=== PATIENT | male | born 1955 | race Caucasian/White ===

== ENCOUNTER → 2016-08-16 | Day surgery (SDC) | payer BC ==
[2016-07-31 08:53] VITALS: BMI 39.0
[~2016-08-16] VITALS: Ht 180.3 cm; Wt 126.4 kg
[~2016-08-16] MED LIST: AMLO10TA2 PO; ASPEC81 PO; ATOR-26 PO; CARV12.52 PO; ESCI1TAB10 PO; LIDOCAINE HCL 2% 2 ML VIAL (20MG/ML) ONE; LISI40TA PO; MIDAZOLAM HCL 1 MG/ML 2ML VIAL ONE; MULT-506 PO; OMEG10007 PO; ONDANSETRON INJ 2 MG/ML 2 ML VIAL ONE; PROPOFOL IV EMULSION 10 MG/ML 20 ML VIAL IV ONE; SODIUM CHLORIDE 0.9% 500ML 500 ML IV ONE
[2016-08-16 13:32] VITALS: Ht 180.3 cm; Wt 126.4 kg
[2016-08-16 13:42] VITALS: TEMP 36.8
--- NOTE | 2016-08-16 14:15 | Endo History and Physical ---
History & Physical Date of Service: Aug 16, 2016. Chief Complaint: 10 YEAR FOLLOW UP Referring Physician: DR BAIRES History of Present Illness colon screening Past Surgical History Hx Cardiac Surgery: No Hx Internal Defibrillator: No Hx Pacemaker: No Hx Abdominal Surgery: No Hx of Implantable Prosthesis: No Hx Post-Op Nausea and Vomiting: No Hx Cancer Surgery: No Hx Thoracic Surgery: No Hx Orthopedic: Yes (LT ARM SURGERY S/P BREAK WITH HARDWARE, RT ARM SKIN GRAFT ( THIGH)S/P TRAUMA) Hx Urinary Tract Surgery: No Family History Polyp, IBD Social History Smoking Status: Former Smoker Hx Substance Use: No Hx Alcohol Use: Yes (30 PACK/WEEK) Allergies Coded Allergies: Sulfa Drugs (Verified Allergy, Unknown, RASH, 08/16/16) Uncoded Allergies: ACIDIC FOODS LARGE AMTS=HIVES (Allergy, Unknown, 07/10/02) Current Medications Reported Home Medications Medications Dose Route/Sig Max Daily Dose Days Date Category [place]-3 (Fish Oil) 1 Ea Cap 1 Cap PO DAILY 07/31/16 Reported Coreg (Carvedilol) 12.5 Mg Tab 12.5 Mg PO DAILY 07/31/16 Reported Zestril (Lisinopril) 40 Mg Tab 40 Mg PO DAILY 07/31/16 Reported Norvasc (Amlodipine Besylate) 10 Mg Tab 10 Mg PO DAILY 07/31/16 Reported Lipitor (Atorvastatin Calcium) 80 Mg Tab 80 Mg PO DAILY 07/31/16 Reported Lexapro (Escitalopram Oxalate) 20 Mg Tab 20 Mg PO BID 07/31/16 Reported Ecotrin Or Generic * (Aspirin) 81 Mg Ectab 81 Mg PO DAILY 01/08/10 Reported Multivitamin (Multivitamins) Tab 1 Tab PO DAILY 01/08/10 Reported Vital Signs Weight (Kilograms): 126.36 Height (Feet): 5 Height (Inches): 11 Date Time Temp Pulse Resp B/P Pulse Ox O2 Delivery O2 Flow Rate FiO2 08/16/16 13:42 36.8 52 20 157/87 95 Room Air Physical Exam AAO x3 Nl s1s2 lungs CTA Abd soft NT/ND + BS - CCE Assessment and Plan colonoscopy
--- NOTE | 2016-08-16 14:52 | Discharge Instructions ---
Endoscopy Patient Instructions Date / Procedure(s) Performed Aug 16, 2016. Colonoscopy Allergy Information Coded Allergies: Sulfa Drugs (Verified Allergy, Unknown, RASH, 08/16/16) Uncoded Allergies: ACIDIC FOODS LARGE AMTS=HIVES (Allergy, Unknown, 07/10/02) Discharge Date / Findings Aug 16, 2016. diverticulosis; colon polyp Medication Instructions Stopped Medication(s): VITAMINS Restart Stopped Medication(s): Reported Home Medications Medications Dose Route/Sig Max Daily Dose Days Date Category [place]-3 (Fish Oil) 1 Ea Cap 1 Cap PO DAILY 07/31/16 Reported Coreg (Carvedilol) 12.5 Mg Tab 12.5 Mg PO DAILY 07/31/16 Reported Zestril (Lisinopril) 40 Mg Tab 40 Mg PO DAILY 07/31/16 Reported Norvasc (Amlodipine Besylate) 10 Mg Tab 10 Mg PO DAILY 07/31/16 Reported Lipitor (Atorvastatin Calcium) 80 Mg Tab 80 Mg PO DAILY 07/31/16 Reported Lexapro (Escitalopram Oxalate) 20 Mg Tab 20 Mg PO BID 07/31/16 Reported Ecotrin Or Generic * (Aspirin) 81 Mg Ectab 81 Mg PO DAILY 01/08/10 Reported Multivitamin (Multivitamins) Tab 1 Tab PO DAILY 01/08/10 Reported Reported Home Medications Medications Dose Route/Sig Max Daily Dose Days Date Category [place]-3 (Fish Oil) 1 Ea Cap 1 Cap PO DAILY 07/31/16 Reported Coreg (Carvedilol) 12.5 Mg Tab 12.5 Mg PO DAILY 07/31/16 Reported Zestril (Lisinopril) 40 Mg Tab 40 Mg PO DAILY 07/31/16 Reported Norvasc (Amlodipine Besylate) 10 Mg Tab 10 Mg PO DAILY 07/31/16 Reported Lipitor (Atorvastatin Calcium) 80 Mg Tab 80 Mg PO DAILY 07/31/16 Reported Lexapro (Escitalopram Oxalate) 20 Mg Tab 20 Mg PO BID 07/31/16 Reported Ecotrin Or Generic * (Aspirin) 81 Mg Ectab 81 Mg PO DAILY 01/08/10 Reported Multivitamin (Multivitamins) Tab 1 Tab PO DAILY 01/08/10 Reported Provider Instructions Activity Restrictions - No exercising or heavy lifting for 24 hours. - Do not drink alcohol the day of the procedure. - Do not drive a car or operate machinery until the day after the procedure. - Do not make any important decisions or sign important papers in 24 hours after the procedure. Following Day: - Return to full activity which may include returning to work/school. Diet Start your diet with liquids and light foods (jello, soup, juice, toast). Then eat your usual diet if not nauseated. Treatment For Common After Affects For mild abdominal pain, bloating, or excessive gas: - Rest - Eat lightly - Lie on right side Follow-Up Information Follow-up with DR BAIRES as scheduled Anesthesia Information What You Should Know You have had a procedure that required some medicine to reduce anxiety and discomfort. This treatment is called moderate sedation. After receiving the treatment, you may be sleepy, but you will be able to breathe on your own. The effects of the treatment may last for several hours. Follow these instructions along with Activity/Diet recommendations noted above: * Do NOT do anything where dizziness or clumsiness would be dangerous. * Rest quietly at home today, then you can be up and about tomorrow. * Have a responsible person stay with you the rest of today. * You may have had an I.V. today. If so, you may take the dressing off later today. Recommendations Call your doctor if: * Trouble breathing * Continuous vomiting for more than 24 hours * Temperature above 101 degrees * Severe abdominal pain or bloating * Pain not relieved by pain medicine ordered * There is increased drainage or redness from any incision * A large amount of rectal bleeding greater than 2-3 tablespoons. (If you had a polyp/s removed or have hemorrhoids, a small amount of blood - from the rectum is to be expected.) * You have any unanswered questions or concerns. IN THE EVENT OF A SERIOUS EMERGENCY, GO TO THE NEAREST EMERGENCY ROOM Your discharge instructions were prepared by provider Nahid Cardenas. Patient Instructions Signature Page Teto Burks Patient (or Guardian) Signature/Date: I have read and understand the instructions given to me by my caregivers. Caregiver/RN/Doctor Signature/Date: The above-named patient and/or guardian has received patient instructions on this date. + Original Patient Signature Page (only) stays with chart. Please make copy for patient.
--- NOTE | 2016-08-16 14:58 | GI REPORT ---
Procedure Date: 08/16/2016 2:12 PM Procedure: Colonoscopy Indications: Screening for colorectal malignant neoplasm, No family history of colon cancer or polyps Medicines: Propofol per Anesthesia Complications: No immediate complications. Estimated blood loss: Minimal. Estimated Blood Loss: Estimated blood loss was minimal. Procedure: Pre-Anesthesia Assessment: - Prior to the procedure, a History and Physical was performed, and patient medications and allergies were reviewed. The patient's tolerance of previous anesthesia was also reviewed. The risks and benefits of the procedure and the sedation options and risks were discussed with the patient. All questions were answered, and informed consent was obtained. Prior Anticoagulants: The patient has taken no previous anticoagulant or antiplatelet agents. ASA Grade Assessment: III - A patient with severe systemic disease. After reviewing the risks and benefits, the patient was deemed in satisfactory condition to undergo the procedure. After I obtained informed consent, the scope was passed under direct vision. Throughout the procedure, the patient's blood pressure, pulse, and oxygen saturations were monitored continuously. The scope was introduced through the anus and advanced to the cecum, identified by appendiceal orifice and ileocecal valve. The colonoscopy was performed without difficulty. The patient tolerated the procedure well. The quality of the bowel preparation was good. Findings: The perianal and digital rectal examinations were normal. Pertinent negatives include normal sphincter tone, no palpable rectal lesions and no anal lesion or abnormality was detected. A 7 mm polyp was found in the descending colon. The polyp was sessile. The polyp was removed with a cold snare. Resection and retrieval were complete. Estimated blood loss was minimal. Verification of patient identification for the specimen was done by the physician and nuclear medicine technician using the patient's name and medical record number. Multiple small-mouthed diverticula were found in the sigmoid colon and in the descending colon. The exam was otherwise without abnormality. The retroflexed view of the distal rectum and anal verge was normal and showed no anal or rectal abnormalities. Impression: - One 7 mm polyp in the descending colon, removed with a cold snare. Resected and retrieved. - Diverticulosis in the sigmoid colon and in the descending colon. - The examination was otherwise normal. - The distal rectum and anal verge are normal on retroflexion view. Recommendation: - Discharge patient to home (ambulatory). - Resume regular diet. - Continue present medications. - Await pathology results. - Repeat colonoscopy for surveillance based on pathology results. - Return to referring physician as previously scheduled. MD Nahid Sargent MD 08/16/2016 2:59:17 PM This report has been signed electronically. Note Initiated On: 08/16/2016 2:12 PM I attest to the content of the Intraoperative Record and orders documented therein, exceptions below
[2016-08-16 15:27] VITALS: BP 114/63; PULSE 51; O2SAT 95
--- NOTE | 2016-08-16 15:28 | Anesthesiology Progress Note ---
Anesthesia Post Op Note Date & Time Aug 16, 2016 at 15:28 Vital Signs Pain Intensity: 0 Vital Signs Past 12 Hours Date Time Temp Pulse Resp B/P Pulse Ox O2 Delivery O2 Flow Rate FiO2 08/16/16 15:09 53 20 114/73 92 Room Air 08/16/16 14:53 59 20 129/73 94 Room Air 08/16/16 13:42 36.8 52 20 157/87 95 Room Air Notes Mental Status: alert / awake / arousable, participated in evaluation Pt Amnestic to Procedure: Yes Nausea / Vomiting: adequately controlled Pain: adequately controlled Airway Patency, RR, SpO2: stable & adequate BP & HR: stable & adequate Hydration State: stable & adequate Anesthetic Complications: no major complications apparent
== END | disposition home or self-care (01) ==
LOC: C.GI 13:16
PROVIDERS: ATTEND Internal Medicine Gastroenterology
DX: Z12.11 Encounter for screening for malignant neoplasm of colon (principal); D12.4 Benign neoplasm of descending colon; K57.30 Diverticulosis of large intestine without perforation or abscess without bleeding; Z98.890 Other specified postprocedural states; Z79.82 Long term (current) use of aspirin; Z83.79 Family history of other diseases of the digestive system; Z87.891 Personal history of nicotine dependence; Z88.2 Allergy status to sulfonamides

== ENCOUNTER → 2017-07-02 | Outpatient (CLI) | payer OTHER ==
[~2017-07-02] MED LIST changes: -LIDOCAINE HCL 2% 2 ML VIAL (20MG/ML) ONE; -MIDAZOLAM HCL 1 MG/ML 2ML VIAL ONE; -ONDANSETRON INJ 2 MG/ML 2 ML VIAL ONE; -PROPOFOL IV EMULSION 10 MG/ML 20 ML VIAL IV ONE; -SODIUM CHLORIDE 0.9% 500ML 500 ML IV ONE
--- NOTE | 2017-07-02 11:56 | DIAGNOSTIC IMAGING REPORT ---
RIGHT SHOULDER 3 VIEWS; RIGHT SCAPULA 2 VIEWS CLINICAL HISTORY: Fall. Right shoulder pain. FINDINGS: 3 views the right shoulder and 2 views of the right scapula are obtained. No prior studies are available for comparison at the time of dictation. The skeletal structures appear osteopenic. There is no radiographic evidence of fracture or dislocation in the right shoulder. There is no radiographic evidence of scapular fracture on the scapular views. Mild productive degenerative change is seen at the acromioclavicular joint. The glenohumeral articulation is preserved. Mild arthritic change is noted in the humeral head. The overlying soft tissues are within normal limits. The visualized right lung parenchyma appears clear. IMPRESSION: 1. Mild degenerative change as above. There is no radiographic evidence of right shoulder fracture or dislocation. 2. There is no radiographic evidence of scapular fracture on the scapula views. Electronically signed by: Ramez Stewart M.D. 07/02/2017 11:55 AM Dictated Date/Time: 07/02/2017 11:53 AM
--- NOTE | 2017-07-02 12:03 | DIAGNOSTIC IMAGING REPORT ---
R HIP UNILATERAL 2 VIEWS HISTORY: 62 years-old Male [id number] acute right hip pain status post fall COMPARISON: CT abdomen and pelvis 01/08/2010 TECHNIQUE: 2 views of the right hip FINDINGS: Mild to moderate right hip degenerative changes. No acute fracture or dislocation. Imaged right hemipelvis appears intact. Probable phleboliths. Soft tissues are unremarkable. IMPRESSION: No acute fracture or dislocation. The above report was generated using voice recognition software. It may contain grammatical, syntax or spelling errors. Electronically signed by: Fly Sales M.D. 07/02/2017 12:01 PM Dictated Date/Time: 07/02/2017 12:00 PM
== END | disposition home or self-care (01) ==
LOC: C.RAD1850 11:32
PROVIDERS: ATTEND Family Medicine
DX: M25.511 Pain in right shoulder (principal); M25.551 Pain in right hip

== ENCOUNTER 2020-12-10 20:23 | Observation (INO) ==
[2020-12-10] MEDS ORDERED: SODIUM CHLORIDE 0.9% 1000ML 2,000 ML IV ONE (21:29)
[2020-12-10] MEDS ORDERED: ACETAMINOPHEN 325 MG TAB PO STA (21:29)
--- NOTE | 2020-12-10 21:41 | Emergency Department Note ---
Impression & Plan Babesiosis, Thrombocytopenia, Acute hyponatremia, Hypomagnesemia ED Provider Note NAME: GUNJAN ALVAREZ AGE: 65 SEX: M : 1955 ARRIVES VIA: Walk-In INFORMANT: Patient ED PROVIDER(S): Rodrick Oh DO CHIEF COMPLAINT: weak HPI: Patient is a 65-year-old male who presents the ER for weakness. Symptoms started this past Sunday and Sunday with some lightheadedness. On Sunday he started having sweats. He was seen here on Sunday had blood work and was discharged follow-up with PCP. He was found to be thrombocytopenic. PCP saw him and will follow him up next week. He started feeling worse today and consequently came back in. He denies any headache or change in vision. No chest pain or shortness of breath. No belly pain nausea vomiting or diarrhea. He admits to dark urine. Denies any dysuria urgency or frequency. No tick bites. No open wounds or sores. ROS: See above HPI for pertinent positives & negatives. A total of 10 systems reviewed and were otherwise negative. PAST MEDICAL HISTORY:See Below PAST SURGICAL HISTORY:See Below FAMILY HISTORY:See Below SOCIAL HISTORY:See Below HOME MEDICATIONS:See Below ALLERGIES:See Below VITALS:See Below PHYSICAL EXAMINATION: GENERAL: Sitting up in bed, alert, well appearing, well nourished, no distress, non-toxic EYE EXAM: normal conjunctiva. PERRL and EOM's grossly intact. OROPHARYNX: no exudate, no erythema, lips, buccal mucosa, and tongue normal and mucous membranes are moist NECK: supple, no nuchal rigidity, no adenopathy, non-tender LUNGS: Clear to auscultation. Normal chest wall mechanics HEART: no murmurs, S1 normal and S2 normal ABDOMEN: abdomen soft, non-tender, normo-active bowel sounds, no masses, no rebound or guarding. UPPER EXTREMITIES: upper extremities are grossly normal. LOWER EXTREMITIES: No pitting edema. NEURO EXAM: Normal sensorium, cranial nerves II-XII grossly intact, normal speech, no gross weakness of arms, no gross weakness of legs. MEDICAL DECISION MAKING: Patient is a 65-year-old male who presents the ER he was seen here 2 days ago had blood work performed as well as Lyme and anaplasmosis all of which was neg ative. Patient presents today as found to be febrile on and otherwise ill- appearing. He has mild leukopenia at 4000. Hemoglobin at 12. Significant thrombocytopenia at 40 down from 190. INR was 1.2. Hyponatremia 130. Magnesium was low at 1.4. Bilirubin at 1.8. UA does show nitrites as well as leuks. This is clearly contaminated with greater than 30 epithelial cells. Do favor the nitrates secondary to the elevated bilirubin. There is no white cells to suggest infection. Patient was given 2 L of IV fluids. He was given doxycycline to cover anaplasmosis and Lyme however smear came back and shows that this is likely babesiosis versus malaria. He has not traveled outside [facility] in the past 2 years. Do favor consistent with babesiosis. Patient was given azithromycin as well as additional antibiotics for coverage. He was updated bedside. Discussed with the hospitalist. Admitted for further work-up. Triage Nursing notes reviewed. Limited review of prior medical records performed Vital Signs: reviewed and remarkable for febrile Differential diagnosis: Differential diagnosis includes etiologies such as sepsis, UTI, pneumonia, metabolic, electrolyte abnormalities, cardiac sources, intracerebral event, toxi cologic, neurological, as well as others were entertained. ER treatment provided: See below Diagnostics interpreted by me: ECG: none Cardiac Monitoring: An order was placed for continuous cardiac monitoring. The monitor shows a rate of 71 with sinus rhythm. Laboratory studies: As stated above and show below. Imaging studies: Portable AP upright 1 view of the chest shows no focal infiltrate or pneumothorax Consultation(s): Discussed with the hospitalist for further evaluation Procedures: none Past Med/Surg History Medical History Depression History of ankle fracture ORIF 05/06/2020 FIBULA PLUS SYNDESMOSIS. COMPLICATED BY WOUND INFECTION History of cardiac murmur A CHILD- NO MURMUR NOTED AT LAST PCP VISIT IN JUN 2019 Hx of migraines Hyperlipidemia Hypertension Pre-diabetes Sleep apnea CPAP Surgical History History of anesthesia reaction SLOW TO WAKE UP History of colonoscopy History of open reduction and internal fixation (ORIF) procedure LEFT ARM Hx of skin graft ELBOW [place] teeth removed Family History Father Diabetes Sister Diabetes Brother Diabetes Other No family history of adverse response to anesthesia Stroke Social History Smoking Status: Never smoker Second Hand Exposure: Yes ( A CHILD); Hx Alcohol Use: Yes Alcohol type: beer Preferred Language: Macedonian Visual Impairment: No 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 Required: No Beliefs That Will Affect Care: None marital status: Current Living Situation: Spouse current occupational status: retired Feels Safe at Home: Yes Assistive Devices: CPAP, Glasses and Walker Allergies Allergies Allergy/AdvReac Type Severity Reaction Status Date / Time Sulfa (Sulfonamide Allergy Mild RASH Verified 11/10/20 09:27 Antibiotics) ACIDIC FOODS LARGE AMTS=HIVES Allergy Intermediate Hives Uncoded 11/10/20 09:27 Home Meds Home Medications Medication Instructions Recorded Confirmed Vascepa 4 cap PO BID 05/02/20 12/11/20 amlodipine 10 mg tablet 10 mg PO QAM 05/02/20 12/11/20 ascorbic acid (vitamin C) 500 mg 500 mg PO QAM 05/02/20 12/11/20 tablet (Vitamin C) aspirin 81 mg tablet,delayed 81 mg PO QPM 05/02/20 12/11/20 release atorvastatin 80 mg tablet 80 mg PO HS 05/02/20 12/11/20 cholecalciferol (vitamin D3) 25 25 mcg PO QAM 05/02/20 12/11/20 mcg (1,000 unit) capsule (Vitamin D3) coQ10 (ubiquinol) 200 mg capsule 200 mg PO QPM 05/02/20 12/11/20 escitalopram oxalate 20 mg tablet 20 mg PO QAM 05/02/20 12/11/20 (Lexapro) lisinopril 40 mg tablet 40 mg PO QPM 05/02/20 12/11/20 metformin 500 mg tablet 500 mg PO QAM 05/02/20 12/11/20 metoprolol succinate 100 mg 100 mg PO QAM 05/02/20 12/11/20 tablet,extended release 24 hr multivitamin 1 tab PO QPM 05/02/20 12/11/20 Previous Rx's Medication Instructions Recorded Wheelchair (Manual) #1 ea 05/06/20 Results & Data (ED) Vital Signs Vital Signs - 24 hr 12/10/20 20:38 12/10/20 21:30 12/10/20 22:00 Temperature 37.9 C H Temperature Source Temporal Artery Scan Pulse Rate 81 Pulse Rate [Apical] 72 74 Pulse Rhythm Regular Pulse Strength Normal Respiratory Rate 20 18 20 Respiratory Effort / Characteristics Non-Labored Spontaneous Respiratory Depth Normal Respiratory Pattern Regular Blood Pressure 111/61 Blood Pressure [Right Arm] 135/67 130/68 Blood Pressure Mean 77 Blood Pressure Mean [Right Arm] 89 88 Blood Pressure Position Sitting Pulse Oximetry 92 94 95 Oxygen Delivery Method Room Air Room Air Room Air Sepsis Recent Fever Within 48 Hours No Sepsis New/Unexplained Change in Mental Status No Sepsis Action Taken by Nursing No Action Required 12/10/20 22:28 12/10/20 22:30 12/10/20 23:00 Temperature Temperature Source Pulse Rate Pulse Rate [Apical] 70 70 Pulse Rhythm Pulse Strength Respiratory Rate 16 18 Respiratory Effort / Characteristics Non-Labored Spontaneous Respiratory Depth Respiratory Pattern Blood Pressure Blood Pressure [Right Arm] 149/79 H 139/79 Blood Pressure Mean Blood Pressure Mean [Right Arm] 102 99 Blood Pressure Position Pulse Oximetry 94 95 Oxygen Delivery Method Room Air Room Air Sepsis Recent Fever Within 48 Hours Sepsis New/Unexplained Change in Mental Status Sepsis Action Taken by Nursing 12/10/20 23:30 12/11/20 00:00 12/11/20 00:30 Temperature Temperature Source Pulse Rate 71 70 73 Pulse Rate [Apical] Pulse Rhythm Pulse Strength Respiratory Rate 17 18 20 Respiratory Effort / Characteristics Respiratory Depth Respiratory Pattern Blood Pressure 120/65 110/72 130/71 Blood Pressure [Right Arm] Blood Pressure Mean 83 84 90 Blood Pressure Mean [Right Arm] Blood Pressure Position Pulse Oximetry Oxygen Delivery Method Sepsis Recent Fever Within 48 Hours Sepsis New/Unexplained Change in Mental Status Sepsis Action Taken by Nursing 12/11/20 00:48 12/11/20 01:08 Temperature 37.3 C Temperature Source Oral Pulse Rate Pulse Rate [Apical] Pulse Rhythm Pulse Strength Respiratory Rate Respiratory Effort / Characteristics Non-Labored Spontaneous Respiratory Depth Respiratory Pattern Blood Pressure Blood Pressure [Right Arm] Blood Pressure Mean Blood Pressure Mean [Right Arm] Blood Pressure Position Pulse Oximetry 98 Oxygen Delivery Method Room Air Sepsis Recent Fever Within 48 Hours Sepsis New/Unexplained Change in Mental Status Sepsis Action Taken by Nursing Laboratory Data Result diagrams: 12/10/20 21:45 12/10/20 21:45 Lab Results 12/10/20 12/10/20 12/10/20 Range/Units 21:45 21:45 21:45 WBC 4.88 (4.8-10.8) K/uL RBC 4.00 L (4.7-6.1) M/uL Hgb 12.1 L (14.0-18.0) g/dL Hct 35.6 L (42-52) % MCV 89.0 (80-100) fL MCH 30.3 (25-34) pg MCHC 34.0 (32-36) g/dL RDW Std Deviation 49.7 H (36.4-46.3) fL RDW Coeff of Deon 15.3 H (11.5-14.5) % Plt Count 40 L (130-400) K/uL MPV 11.8 H (7.4-10.4) fL Neutrophils % (Manual) 51.7 % Lymphocytes % (Manual) 23.7 % Reactive Lymphs % (Man) 11.4 % Monocytes % (Manual) 11.4 % Eosinophils % (Manual) 0.9 % Metamyelocytes % (Man) 0.9 % Neutrophils # (Manual) 2.52 (1.4-6.5) K/uL Total Absolute Neuts 2.52 (1.4-6.5) K/uL Lymphocytes # (Manual) 1.16 L (1.2-3.4) K/uL Reactive Lymphs # 0.56 K/uL Total Abs Lymphocytes 1.71 (1.2-3.4) K/uL Monocytes # (Manual) 0.56 (0.11-0.59) K/uL Eosinophils # (Manual) 0.04 (0-0.5) K/uL Metamyelocytes # (Man) 0.04 H (0-0) K/uL Platelet Estimate Decreased L (Normal) Polychromasia 1+ PT (9.0-12.0) Seconds INR (0.9-1.1) APTT (21.0-31.0) Seconds PTT Ratio Sodium 130 L (136-145) mmol/L Potassium 3.8 (3.5-5.1) mmol/L Chloride 98 (98-107) mmol/L Carbon Dioxide 27 (21-32) mmol/L Anion Gap 5.0 (3-11) BUN 16 (7-18) mg/dl Creatinine 0.77 D (0.6-1.4) mg/dl Est Cr Clr Drug Dosing 118.0 ml/min Est GFR ( Amer) 110.4 ml/min Est GFR (Non-Af Amer) 95.2 ml/min BUN/Creatinine Ratio 20.6 H (10-20) Glucose 176 H (70-99) mg/dl Lactate (0.4-2.0) mmol/L Calcium 8.7 (8.5-10.1) mg/dl Magnesium 1.4 L (1.8-2.4) mg/dl Total Bilirubin 1.8 H (0.2-1) mg/dl AST 63 H (15-37) U/L ALT 56 (12-78) U/L Alkaline Phosphatase 53 (45-117) U/L Total Protein 7.7 (6.4-8.2) gm/dl Albumin 2.9 L (3.4-5.0) gm/dl Globulin 4.8 H (2.5-4.0) gm/dl Albumin/Globulin Ratio 0.6 L (0.9-2) Urine Color Urine Appearance (Clear) Urine pH (4.5-7.5) Ur Specific [place] (1.000-1.030) Urine Protein (Negative) Urine Glucose (UA) (Negative) Urine Ketones (Negative) Urine Blood (Negative) Urine Nitrite (Negative) Urine Bilirubin (Negative) Urine Urobilinogen (Negative) Ur Leukocyte Esterase (Negative) Urine WBC (Auto) (0-5) /hpf Urine RBC (Auto) (0-4) /hpf U Hyaline Cast (Auto) (0-5) /lpf U Epithel Cells (Auto) (0-5) /lpf Urine Bacteria (Auto) (Negative) Ur Renal Epithelial Cell Granular Casts (0) /lpf Anaplasma Smear See Comment Lyme Disease IgG Ab (Negative) Lyme Disease IgM Ab (Negative) COVID-19 Eval Order SARS-CoV-2 (PCR) (Negative) 12/10/20 12/10/20 12/10/20 Range/Units 21:45 21:45 21:45 WBC (4.8-10.8) K/uL RBC (4.7-6.1) M/uL Hgb (14.0-18.0) g/dL Hct (42-52) % MCV (80-100) fL MCH (25-34) pg MCHC (32-36) g/dL RDW Std Deviation (36.4-46.3) fL RDW Coeff of Deon (11.5-14.5) % Plt Count (130-400) K/uL MPV (7.4-10.4) fL Neutrophils % (Manual) % Lymphocytes % (Manual) % Reactive Lymphs % (Man) % Monocytes % (Manual) % Eosinophils % (Manual) % Metamyelocytes % (Man) % Neutrophils # (Manual) (1.4-6.5) K/uL Total Absolute Neuts (1.4-6.5) K/uL Lymphocytes # (Manual) (1.2-3.4) K/uL Reactive Lymphs # K/uL Total Abs Lymphocytes (1.2-3.4) K/uL Monocytes # (Manual) (0.11-0.59) K/uL Eosinophils # (Manual) (0-0.5) K/uL Metamyelocytes # (Man) (0-0) K/uL Platelet Estimate (Normal) Polychromasia PT 12.4 H (9.0-12.0) Seconds INR 1.2 H (0.9-1.1) APTT 29.3 (21.0-31.0) Seconds PTT Ratio 1.1 Sodium (136-145) mmol/L Potassium (3.5-5.1) mmol/L Chloride (98-107) mmol/L Carbon Dioxide (21-32) mmol/L Anion Gap (3-11) BUN (7-18) mg/dl Creatinine (0.6-1.4) mg/dl Est Cr Clr Drug Dosing ml/min Est GFR ( Amer) ml/min Est GFR (Non-Af Amer) ml/min BUN/Creatinine Ratio (10-20) Glucose (70-99) mg/dl Lactate 1.6 (0.4-2.0) mmol/L Calcium (8.5-10.1) mg/dl Magnesium (1.8-2.4) mg/dl Total Bilirubin (0.2-1) mg/dl AST (15-37) U/L ALT (12-78) U/L Alkaline Phosphatase (45-117) U/L Total Protein (6.4-8.2) gm/dl Albumin (3.4-5.0) gm/dl Globulin (2.5-4.0) gm/dl Albumin/Globulin Ratio (0.9-2) Urine Color Urine Appearance (Clear) Urine pH (4.5-7.5) Ur Specific [place] (1.000-1.030) Urine Protein (Negative) Urine Glucose (UA) (Negative) Urine Ketones (Negative) Urine Blood (Negative) Urine Nitrite (Negative) Urine Bilirubin (Negative) Urine Urobilinogen (Negative) Ur Leukocyte Esterase (Negative) Urine WBC (Auto) (0-5) /hpf Urine RBC (Auto) (0-4) /hpf U Hyaline Cast (Auto) (0-5) /lpf U Epithel Cells (Auto) (0-5) /lpf Urine Bacteria (Auto) (Negative) Ur Renal Epithelial Cell Granular Casts (0) /lpf Anaplasma Smear Lyme Disease IgG Ab Negative (Negative) Lyme Disease IgM Ab Negative (Negative) COVID-19 Eval Order SARS-CoV-2 (PCR) (Negative) 12/10/20 12/11/20 12/11/20 Range/Units 21:56 00:00 00:00 WBC (4.8-10.8) K/uL RBC (4.7-6.1) M/uL Hgb (14.0-18.0) g/dL Hct (42-52) % MCV (80-100) fL MCH (25-34) pg MCHC (32-36) g/dL RDW Std Deviation (36.4-46.3) fL RDW Coeff of Deon (11.5-14.5) % Plt Count (130-400) K/uL MPV (7.4-10.4) fL Neutrophils % (Manual) % Lymphocytes % (Manual) % Reactive Lymphs % (Man) % Monocytes % (Manual) % Eosinophils % (Manual) % Metamyelocytes % (Man) % Neutrophils # (Manual) (1.4-6.5) K/uL Total Absolute Neuts (1.4-6.5) K/uL Lymphocytes # (Manual) (1.2-3.4) K/uL Reactive Lymphs # K/uL Total Abs Lymphocytes (1.2-3.4) K/uL Monocytes # (Manual) (0.11-0.59) K/uL Eosinophils # (Manual) (0-0.5) K/uL Metamyelocytes # (Man) (0-0) K/uL Platelet Estimate (Normal) Polychromasia PT (9.0-12.0) Seconds INR (0.9-1.1) APTT (21.0-31.0) Seconds PTT Ratio Sodium (136-145) mmol/L Potassium (3.5-5.1) mmol/L Chloride (98-107) mmol/L Carbon Dioxide (21-32) mmol/L Anion Gap (3-11) BUN (7-18) mg/dl Creatinine (0.6-1.4) mg/dl Est Cr Clr Drug Dosing ml/min Est GFR ( Amer) ml/min Est GFR (Non-Af Amer) ml/min BUN/Creatinine Ratio (10-20) Glucose (70-99) mg/dl Lactate (0.4-2.0) mmol/L Calcium (8.5-10.1) mg/dl Magnesium (1.8-2.4) mg/dl Total Bilirubin (0.2-1) mg/dl AST (15-37) U/L ALT (12-78) U/L Alkaline Phosphatase (45-117) U/L Total Protein (6.4-8.2) gm/dl Albumin (3.4-5.0) gm/dl Globulin (2.5-4.0) gm/dl Albumin/Globulin Ratio (0.9-2) Urine Color [place] Urine Appearance Clear (Clear) Urine pH 5.5 (4.5-7.5) Ur Specific [place] 1.025 (1.000-1.030) Urine Protein 1+ H (Negative) Urine Glucose (UA) Negative (Negative) Urine Ketones Trace H (Negative) Urine Blood Negative (Negative) Urine Nitrite Positive A (Negative) Urine Bilirubin 1+ H (Negative) Urine Urobilinogen Positive H (Negative) Ur Leukocyte Esterase Trace H (Negative) Urine WBC (Auto) 1-5 (0-5) /hpf Urine RBC (Auto) 5-10 H (0-4) /hpf U Hyaline Cast (Auto) 5-10 H (0-5) /lpf U Epithel Cells (Auto) >30 H (0-5) /lpf Urine Bacteria (Auto) Negative (Negative) Ur Renal Epithelial Cell Not Reportable Granular Casts 5-10 H (0) /lpf Anaplasma Smear Lyme Disease IgG Ab (Negative) Lyme Disease IgM Ab (Negative) COVID-19 Eval Order Covid19 at [facility] SARS-CoV-2 (PCR) NEGATIVE (Negative) Administered Medications Doxycycline Hyclate 100 mg/ (Dextrose) 110 mls @ 50 mls/hr IV NOW STA Stop: 12/11/20 01:30 Last Admin: 12/10/20 23:45 Dose: 50 mls/hr Documented by: [id number] Magnesium Sulfate/Dextrose (Magnesium Sulfate / D5w) 1 gm in 100 mls @ 50 ml s/hr IV Q2H STA Stop: 12/11/20 02:22 Last Admin: 12/11/20 00:44 Dose: 50 mls/hr Documented by: [id number] Discontinued Medications Acetaminophen (Acetaminophen 325 Mg Tab) 650 mg PO NOW STA Stop: 12/10/20 21:30 Last Admin: 12/10/20 22:03 Dose: 650 mg Documented by: [id number] Atovaquone (Atovaquone 750 Mg/5 Ml Udc) 750 mg PO NOW STA Stop: 12/10/20 23:06 Last Admin: 12/10/20 23:45 Dose: 750 mg Documented by: [id number] Sodium Chloride (Nss 1000ml) 2,000 mls @ 999 mls/hr IV .Q2H1M ONE Stop: 12/10/20 23:29 Last Infusion: 12/11/20 01:07 Dose: 0 mls/hr Documented by: [id number] Admin: 12/10/20 22:03 Dose: 999 mls/hr Documented by: [id number] Azithromycin 500 mg/ Dextrose 255 mls @ 127.5 mls/hr IV NOW STA Stop: 12/11/20 01:04 Last Admin: 12/10/20 23:45 Dose: 127.5 mls/hr Documented by: [id number] Imaging Data Radiologist's Impression: Chest X-Ray 12/10/20 21:29 XR chest 1V portable CLINICAL HISTORY: SEPSIS COMPARISON STUDY: Chest CT December 09, 2020. FINDINGS: Lung volumes are normal. Lungs are clear. There is no pneumothorax or pleural effusion. Cardiac size is stable. Mediastinal contours are normal. There is no evidence for pulmonary edema. Mild elevation/eventration of the right hemidiaphragm is unchanged IMPRESSION: No acute cardiopulmonary findings. ACT 112: Negative or not required by law. Electronically signed by: Tj Allen M.D. 12/10/2020 10:51 PM Discharge Plan Visit Data Chief Complaint: Illness Stated Complaint: DIZZINESS, FEELING ILL ED Provider: Rodrick Oh Discharge Problem: Babesiosis, Thrombocytopenia, Acute hyponatremia, Hypomagnesemia Patient Disposition: Admitted As Inpatient Forms Stand Alone Forms: [facility] Prescriptions Prescriptions: No Action (DME) Wheelchair (Manual) Device See Rx Instructions .MEDSUPPLY Qty: 1 RF: 0 multivitamin Tablet 1 tab PO QPM RF: 0 metformin 500 mg Tablet 500 mg PO QAM RF: 0 atorvastatin 80 mg Tablet 80 mg PO HS RF: 0 metoprolol succinate 100 mg Tablet Extended Release 24 Hr 100 mg PO QAM RF: 0 aspirin 81 mg Tablet,Delayed Release (Dr/Ec) 81 mg PO QPM RF: 0 ascorbic acid (vitamin C) [Vitamin C] 500 mg Tablet 500 mg PO QAM RF: 0 amlodipine 10 mg Tablet 10 mg PO QAM RF: 0 lisinopril 40 mg Tablet 40 mg PO QPM RF: 0 cholecalciferol (vitamin D3) [Vitamin D3] 25 mcg (1,000 unit) Capsule 25 mcg PO QAM RF: 0 escitalopram oxalate [Lexapro] 20 mg Tablet 20 mg PO QAM RF: 0 coQ10 (ubiquinol) 200 mg Capsule 200 mg PO QPM RF: 0 Vascepa 4 cap PO BID RF: 0 Referrals Referrals: Kena Contreras MD [Primary Care Provider] -
[2020-12-10 21:55] LABS: Hematocrit (blood only) 35.6 % (42-52); Hemoglobin 12.1 g/dL (14.0-18.0); Mean Corpuscular Hemoglobin 30.3 pg (25-34); RDW Coefficient of Variation 15.3 % (11.5-14.5); RDW Standard Deviation 49.7 fL (36.4-46.3); White Blood Count 4.88 K/uL (4.8-10.8)
[2020-12-10 22:17] LABS: INR 1.2 (0.9-1.1); Partial Thromboplastin Ratio 1.1; Partial Thromboplastin Time 29.3 Seconds (21.0-31.0); Prothrombin Time 12.4 Seconds (9.0-12.0)
[2020-12-10 22:19] LABS: Albumin Globulin Ratio 0.6 (0.9-2); Albumin Level 2.9 gm/dl (3.4-5.0); BUN Creatinine Ratio 20.6 (10-20); Bilirubin,Total 1.8 mg/dl (0.2-1); Calcium 8.7 mg/dl (8.5-10.1); Est GFR (African American) 110.4 ml/min; Est GFR (Non-African American) 95.2 ml/min; Globulin 4.8 gm/dl (2.5-4.0); Magnesium 1.4 mg/dl (1.8-2.4); Potassium 3.8 mmol/L (3.5-5.1); Total Protein 7.7 gm/dl (6.4-8.2)
[2020-12-10 22:48] LABS: Appearance Urine Clear (Clear); Bacteria Urine Automated Negative (Negative); Blood Urine Negative (Negative); Color Urine Orange; Epithelial Cell Urine Auto >30 /lpf (0-5); Glucose Urine UA Negative (Negative); Ketones Urine Trace (Negative); Leukocyte Esterase Urine Trace (Negative); Nitrite Urine Positive (Negative); Protein Urine 1+ (Negative); Specific Gravity Urine 1.025 (1.000-1.030); Urobilinogen Urine Positive (Negative); pH Urine 5.5 (4.5-7.5)
[2020-12-10 22:51] LABS: Bilirubin Urine 1+ (Negative)
--- NOTE | 2020-12-10 22:52 | XRay Report ---
XR chest 1V portable CLINICAL HISTORY: SEPSIS COMPARISON STUDY: Chest CT December 09, 2020. FINDINGS: Lung volumes are normal. Lungs are clear. There is no pneumothorax or pleural effusion. Car diac size is stable. Mediastinal contours are normal. There is no evidence for pulmonary edema. Mild elevation/eventration of the right hemidiaphragm is unchanged IMPRESSION: No acute cardiopulmonary findings. ACT 112: Negative or not required by law. Electronically signed by: Tj Allen M.D. 12/10/2020 10:51 PM
[2020-12-10 22:54] LABS: Lyme Ab IgG w/WB Rflx Negative (Negative)
[2020-12-10 22:55] LABS: Lyme Ab IgM w/WB Rflx Negative (Negative)
[2020-12-10 22:59] LABS: Mean Platelet Volume 11.8 fL (7.4-10.4); Platelet Count 40 K/uL (130-400)
[2020-12-10] MEDS ORDERED: ATOVAQUONE 750 MG/5 ML UDC PO STA (23:05)
[2020-12-10] MEDS ORDERED: AZITHROMYCIN 500 MG in DEXTROSE 5% 250 ML IV STA (23:05)
[2020-12-10 23:07] LABS: ALC (manual) 1.71 K/uL (1.2-3.4); ANC (manual) 2.52 K/uL (1.4-6.5); Eosinophils # (manual) 0.04 K/uL (0-0.5); Eosinophils % (manual) 0.9 %; Lymphocytes # (manual) 1.16 K/uL (1.2-3.4); Lymphocytes % (manual) 23.7 %; Metamyelocytes # (manual) 0.04 K/uL (0-0); Metamyelocytes % (manual) 0.9 %; Monocytes # (manual) 0.56 K/uL (0.11-0.59); Monocytes % (manual) 11.4 %; Neutrophils # (manual) 2.52 K/uL (1.4-6.5); Neutrophils % (manual) 51.7 %; Platelet Estimate Decreased (Normal); Polychromasia 1+; Reactive Lymphocytes # (manual) 0.56 K/uL; Reactive Lymphocytes % (manual) 11.4 %
[2020-12-10] MEDS ORDERED: DOXYCYCLINE HYCLATE 100 MG in DEXTROSE 5% 100 ML IV STA (23:19)
[2020-12-11] MEDS ORDERED: MAGNESIUM SULFATE / D5W 1 GM/100 ML BAG IV STA (00:23)
--- NOTE | 2020-12-11 01:12 | History & Physical Report ---
Date of Service December 11, 2020 Assessment & Plan (1) Babesiosis: Plan: Initial screening peripheral smear for anaplasmosis was thought to possibly represent either malaria or babesiosis. Patient has not had any travel to any malaria type stones, so he is therefore been empirically treated for babesiosis, while the babesiosis smear itself is pending Babesiosis antibody test will also be sent Autovaquone 750 mg p.o. every 12 hours, azithromycin 500 mg IV daily for tr eatment of presumptive babesiosis Doxycycline 100 mg IV every 12 hours added until anaplasmosis antibodies returned negative (2) Thrombocytopenia: Plan: Platelets are 40 upon admission. Follow daily as the above is treated (3) Weakness: Plan: Presumptively secondary to babesiosis type infection (4) Acute hyponatremia: Plan: Sodium 130 upon admission. Placed on NSS + KCl 20 mEq at 100 mils per hour (5) Hypomagnesemia: Plan: Magnesium 1.4 upon admission. Give 3 g of magnesium sulfate IV, and repeat laboratories in a.m. (6) Hyperlipidemia: Plan: Continue atorvastatin 80 mg daily (7) Hypertension: Plan: Hold amlodipine, aspirin, lisinopril. Continue metoprolol succinate 100 mg every morning with hold parameters (8) Sleep apnea: Plan: CPAP at at bedtime as needed (9) Depression: Plan: Continue Lexapro 20 mg daily History of Present Illness Chief Complaint: The patient presents to the emergency department with some persistent generalized weakness that began about 6 days ago, developed sweats 3 days ago, and was seen in the emergency department 2 days ago when he was found to be thrombocytopenic, and advised to follow-up with his PCP. Primary Care Provider: Kena Contreras MD The patient is a 65-year-old male with a past medical history including hypertension, hyperlipidemia, depression, diabetes mellitus and obesity. He presents to the emergency department with symptoms as noted above. [place], but denies any knowledge of tick bites or any other skin disturbances. He denies any recent travels or sick exposures. He did have testing performed in emergency department this evening with the following significant results: Lyme IgM and IgG negative. COVID-19 negative. Anaplasmosis smear negative, but with incidental report of red blood cell inclusion body suggestive of either malaria or babesiosis by pathologist. The patient was started by the ED on Atovaquone orally, doxycycline IV and azithromycin IV. Allergies Allergy/AdvReac Type Severity Reaction Status Date / Time Sulfa (Sulfonamide Allergy Mild RASH Verified 11/10/20 09:27 Antibiotics) ACIDIC FOODS LARGE AMTS=HIVES Allergy Intermediate Hives Uncoded 11/10/20 09:27 Home Medications Medication Instructions Recorded Confirmed Type Vascepa 4 cap PO BID 05/02/20 12/11/20 History amlodipine 10 mg tablet 10 mg PO QAM 05/02/20 12/11/20 History ascorbic acid (vitamin C) 500 mg 500 mg PO QAM 05/02/20 12/11/20 History tablet (Vitamin C) aspirin 81 mg tablet,delayed 81 mg PO QPM 05/02/20 12/11/20 History release atorvastatin 80 mg tablet 80 mg PO HS 05/02/20 12/11/20 History cholecalciferol (vitamin D3) 25 25 mcg PO QAM 05/02/20 12/11/20 History mcg (1,000 unit) capsule (Vitamin D3) coQ10 (ubiquinol) 200 mg capsule 200 mg PO QPM 05/02/20 12/11/20 History escitalopram oxalate 20 mg tablet 20 mg PO QAM 05/02/20 12/11/20 History (Lexapro) lisinopril 40 mg tablet 40 mg PO QPM 05/02/20 12/11/20 History metformin 500 mg tablet 500 mg PO QAM 05/02/20 12/11/20 History metoprolol succinate 100 mg 100 mg PO QAM 05/02/20 12/11/20 History tablet,extended release 24 hr multivitamin 1 tab PO QPM 05/02/20 12/11/20 History Wheelchair (Manual) #1 ea 05/06/20 11/10/20 Rx Past Med/Surg History Medical History (Updated 12/11/20 @ 05:17 by Servando Sam MD) Depression History of ankle fracture ORIF 05/06/2020 FIBULA PLUS SYNDESMOSIS. COMPLICATED BY WOUND INFECTION History of cardiac murmur A CHILD- NO MURMUR NOTED AT LAST PCP VISIT IN JUN 2019 Hx of migraines Hyperlipidemia Hypertension Pre-diabetes Sleep apnea CPAP Surgical History History of anesthesia reaction SLOW TO WAKE UP History of colonoscopy History of open reduction and internal fixation (ORIF) procedure LEFT ARM Hx of skin graft ELBOW [place] teeth removed Family History Father Diabetes Sister Diabetes Brother Diabetes Other No family history of adverse response to anesthesia Stroke Social History Smoking Status: Former smoker Smoking End Date: Quit smoking 42 years ago; Second Hand Exposure: No; Do You Dip or Chew Tobacco: No; Tobacco Cessation Education Requested by Patient: No Hx Alcohol Use: Yes Alcohol type: beer Hx Substance Use: No Preferred Language: Malay Communication Ability: Effective Visual Impairment: No Limitations Veneer Stock Layer Required: No Beliefs That Will Affect Care: None marital status: Current Living Situation: Spouse and Family Current Living Situation Comment: Lives w/ spouse and one son at home current occupational status: retired Other Information That Helps Us Care for You: No Feels Safe at Home: Yes Safety Concerns: Feels Safe At This Time Assistive Devices: None Review of Systems Review of Systems: The patient denies chest pain, palpitations, shortness of breath, dyspnea on exertion, cough, lower extremity swelling, sore throat, nausea, vomiting, diarrhea , constipation, abdominal pain, pelvic pain, blood in urine or stool, dysuria, urinary frequency or urgency, lightheadedness, dizziness, headache, memory loss, loss of consciousness, rash, abnormal bruising or bleeding, imbalance, focal weakness, numbness or tingling in arms or legs, generalized arthralgias or myalgias, back or neck pain, or night sweats. The review of systems is otherwise negative other than for that already noted above, and at least 10 systems have been reviewed. Physical Exam Physical Exam: The patient is awake, alert and oriented 3, well developed and well nourished, normocephalic and atraumatic, lying in bed and in no acute distress. HEENT--PERRL, EOMI, mucous membranes and oropharynx dry. Neck--supple. No JVD. No bruits. Thyroid normal, trachea midline, no adenopathy. Heart--normal S1 and S2. No murmurs, rubs or gallops. Lungs--clear bilaterally, no respiratory distress, no accessory muscle use. Abdomen--normal bowel sounds and soft. Nontender. Nondistended, no hernias or masses, no organomegaly. Extremities--no cyanosis or clubbing. No edema. There are good distal pulses b/l. Dermatologic--normal skin turgor, normal color, no abnormal lymph nodes, no rash. Neurologic--cranial nerves II through XII grossly intact. Rheumatologic--normal range of motion. Psychiatric--normal affect. Results & Data Results & Data ([facility]) Vital Signs (Past 12 Hours) Vital Signs Temp Pulse Pulse Resp BP BP Pulse Ox 12/11/20 01:08 98 12/11/20 00:48 99.1 F 12/11/20 00:30 73 20 130/71 12/11/20 00:00 70 18 110/72 12/10/20 23:30 71 17 120/65 12/10/20 23:00 70 18 139/79 95 12/10/20 22:30 70 16 149/79 H 94 12/10/20 22:00 74 20 130/68 95 12/10/20 21:30 72 18 135/67 94 12/10/20 20:38 100.2 F H 81 20 111/61 92 Laboratory Results Laboratory Results WBC 4.88 K/uL (4.8-10.8) 12/10/20 21:45 RBC 4.00 M/uL (4.7-6.1) L 12/10/20 21:45 Hgb 12.1 g/dL (14.0-18.0) L 12/10/20 21:45 Hct 35.6 % (42-52) L 12/10/20 21:45 MCV 89.0 fL (80-100) 12/10/20 21:45 MCH 30.3 pg (25-34) 12/10/20 21:45 MCHC 34.0 g/dL (32-36) 12/10/20 21:45 RDW Std Deviation 49.7 fL (36.4-46.3) H 12/10/20 21:45 RDW Coeff of Deon 15.3 % (11.5-14.5) H 12/10/20 21:45 Plt Count 40 K/uL (130-400) L 12/10/20 21:45 MPV 11.8 fL (7.4-10.4) H 12/10/20 21:45 Neutrophils % (Manual) 51.7 % 12/10/20 21:45 Lymphocytes % (Manual) 23.7 % 12/10/20 21:45 Reactive Lymphs % (Man) 11.4 % 12/10/20 21:45 Monocytes % (Manual) 11.4 % 12/10/20 21:45 Eosinophils % (Manual) 0.9 % 12/10/20 21:45 Metamyelocytes % (Man) 0.9 % 12/10/20 21:45 Neutrophils # (Manual) 2.52 K/uL (1.4-6.5) 12/10/20 21:45 Total Absolute Neuts 2.52 K/uL (1.4-6.5) 12/10/20 21:45 Lymphocytes # (Manual) 1.16 K/uL (1.2-3.4) L 12/10/20 21:45 Reactive Lymphs # 0.56 K/uL 12/10/20 21:45 Total Abs Lymphocytes 1.71 K/uL (1.2-3.4) 12/10/20 21:45 Monocytes # (Manual) 0.56 K/uL (0.11-0.59) 12/10/20 21:45 Eosinophils # (Manual) 0.04 K/uL (0-0.5) 12/10/20 21:45 Metamyelocytes # (Man) 0.04 K/uL (0-0) H 12/10/20 21:45 Platelet Estimate Decreased (Normal) L 12/10/20 21:45 Polychromasia 1+ 12/10/20 21:45 PT 12.4 Seconds (9.0-12.0) H 12/10/20 21:45 INR 1.2 (0.9-1.1) H 12/10/20 21:45 APTT 29.3 Seconds (21.0-31.0) 12/10/20 21:45 PTT Ratio 1.1 12/10/20 21:45 Sodium 130 mmol/L (136-145) L 12/10/20 21:45 Potassium 3.8 mmol/L (3.5-5.1) 12/10/20 21:45 Chloride 98 mmol/L (98-107) 12/10/20 21:45 Carbon Dioxide 27 mmol/L (21-32) 12/10/20 21:45 Anion Gap 5.0 (3-11) 12/10/20 21:45 BUN 16 mg/dl (7-18) 12/10/20 21:45 Creatinine 0.77 mg/dl (0.6-1.4) D 12/10/20 21:45 Est Cr Clr Drug Dosing 118.0 ml/min 12/10/20 21:45 Est GFR ( Amer) 110.4 ml/min 12/10/20 21:45 Est GFR (Non-Af Amer) 95.2 ml/min 12/10/20 21:45 BUN/Creatinine Ratio 20.6 (10-20) H 12/10/20 21:45 Glucose 176 mg/dl (70-99) H 12/10/20 21:45 Lactate 1.6 mmol/L (0.4-2.0) 12/10/20 21:45 Calcium 8.7 mg/dl (8.5-10.1) 12/10/20 21:45 Magnesium 1.4 mg/dl (1.8-2.4) L 12/10/20 21:45 Total Bilirubin 1.8 mg/dl (0.2-1) H 12/10/20 21:45 AST 63 U/L (15-37) H 12/10/20 21:45 ALT 56 U/L (12-78) 12/10/20 21:45 Alkaline Phosphatase 53 U/L (45-117) 12/10/20 21:45 Total Protein 7.7 gm/dl (6.4-8.2) 12/10/20 21:45 Albumin 2.9 gm/dl (3.4-5.0) L 12/10/20 21:45 Globulin 4.8 gm/dl (2.5-4.0) H 12/10/20 21:45 Albumin/Globulin Ratio 0.6 (0.9-2) L 12/10/20 21:45 Urine Color Wilkinson 12/10/20 21:56 Urine Appearance Clear (Clear) 12/10/20 21:56 Urine pH 5.5 (4.5-7.5) 12/10/20 21:56 Ur Specific Theodore 1.025 (1.000-1.030) 12/10/20 21:56 Urine Protein 1+ (Negative) H 12/10/20 21:56 Urine Glucose (UA) Negative (Negative) 12/10/20 21:56 Urine Ketones Trace (Negative) H 12/10/20 21:56 Urine Blood Negative (Negative) 12/10/20 21:56 Urine Nitrite Positive (Negative) A 12/10/20 21:56 Urine Bilirubin 1+ (Negative) H 12/10/20 21:56 Urine Urobilinogen Positive (Negative) H 12/10/20 21:56 Ur Leukocyte Esterase Trace (Negative) H 12/10/20 21:56 Urine WBC (Auto) 1-5 /hpf (0-5) 12/10/20 21:56 Urine RBC (Auto) 5-10 /hpf (0-4) H 12/10/20 21:56 U Hyaline Cast (Auto) 5-10 /lpf (0-5) H 12/10/20 21:56 U Epithel Cells (Auto) >30 /lpf (0-5) H 12/10/20 21:56 Urine Bacteria (Auto) Negative (Negative) 12/10/20 21:56 Ur Renal Epithelial Cell Not Reportable 12/10/20 21:56 Granular Casts 5-10 /lpf (0) H 12/10/20 21:56 Anaplasma Smear See Comment 12/10/20 21:45 Lyme Disease IgG Ab Negative (Negative) 12/10/20 21:45 Lyme Disease IgM Ab Negative (Negative) 12/10/20 21:45 COVID-19 Eval Order Covid19 at [facility] 12/11/20 00:00 SARS-CoV-2 (PCR) NEGATIVE (Negative) 12/11/20 00:00 Impressions Chest X-Ray 12/10/20 21:29 XR chest 1V portable CLINICAL HISTORY: SEPSIS COMPARISON STUDY: Chest CT December 09, 2020. FINDINGS: Lung volumes are normal. Lungs are clear. There is no pneumothorax or pleural effusion. Cardiac size is stable. Mediastinal contours are normal. There is no evidence for pulmonary edema. Mild elevation/eventration of the right hemidiaphragm is unchanged IMPRESSION: No acute cardiopulmonary findings. ACT 112: Negative or not required by law. Electronically signed by: Tj Allen M.D. 12/10/2020 10:51 PM Code Status & VTE Plan Code Status Full code VTE Prophylaxis Plan VTE Prophylaxis will be ordered: Yes PG Care Time/CCT Total # of Minutes Spent Total Time Spent with Patient: Total time spent is greater than 50% in coordination of care (as documented) at patient's floor/unit and/or counseling patient: Coding Level of Care Code 44278 Initial Inpt Care Lvl 3 Diagnoses Babesiosis B60.00 Thrombocytopenia D69.6 Weakness R53.1 Acute hyponatremia E87.1 Hypomagnesemia E83.42 Hyperlipidemia E78.5 Hypertension I10 Sleep apnea G47.30 Depression F32.9
[2020-12-11] MEDS ORDERED: ONDANSETRON INJ 2 MG/ML 2 ML VIAL IV PRN (02:24)
[2020-12-11] MEDS: NSS + 20MEQ KCL 20 MEQ/1,000 ML BAG IV SCH ×2 (03:19→19:36)
[2020-12-11] MEDS: ACETAMINOPHEN 325 MG TAB PO PRN ×3 (03:19→23:01)
[2020-12-11 07:20] LABS: Hematocrit (blood only) 32.2 % (42-52); Mean Corpuscular Hemoglobin 29.9 pg (25-34); Mean Corpuscular Hgb Conc 34.2 g/dL (32-36); Mean Corpuscular Volume 87.5 fL (80-100); RDW Coefficient of Variation 15.3 % (11.5-14.5); RDW Standard Deviation 49.2 fL (36.4-46.3); Red Blood Count 3.68 M/uL (4.7-6.1); White Blood Count 5.07 K/uL (4.8-10.8)
[2020-12-11 07:21] LABS: Mean Platelet Volume 11.6 fL (7.4-10.4); Platelet Count 30 K/uL (130-400)
[2020-12-11 07:37] LABS: Basophils # (auto) 0.01 K/uL (0-0.2); Basophils % (auto) 0.2 %; Eosinophils # (auto) 0.02 K/uL (0-0.5); Eosinophils % (auto) 0.4 %; Immature Granulocytes # (auto) 0.02 K/uL (0.00-0.02); Immature Granulocytes % (auto) 0.4 %; Lymphocytes # (auto) 2.06 K/uL (1.2-3.4); Lymphocytes % (auto) 40.6 %; Monocytes # (auto) 0.87 K/uL (0.11-0.59); Monocytes % (auto) 17.2 %; Neutrophils # (auto) 2.09 K/uL (1.4-6.5); Neutrophils % (auto) 41.2 %
[2020-12-11 08:00] LABS: Albumin Level 2.7 gm/dl (3.4-5.0); BUN Creatinine Ratio 19.9 (10-20); Calcium 8.1 mg/dl (8.5-10.1); Creatinine Clr Calc Pharmacy 160.3 ml/min; Est GFR (African American) 124.9 ml/min; Est GFR (Non-African American) 107.8 ml/min; Potassium 3.8 mmol/L (3.5-5.1)
[2020-12-11 08:03] LABS: Albumin Globulin Ratio 0.7 (0.9-2); Bilirubin,Total 1.9 mg/dl (0.2-1); Total Protein 6.7 gm/dl (6.4-8.2)
[2020-12-11] MEDS ORDERED: CARBOHYDRATES FOR HYPOGLYCEMIA PO PRN (08:30)
[2020-12-11] MEDS ORDERED: GLUCOSE 10 TABS/TUBE PO PRN (08:30)
[2020-12-11] MEDS ORDERED: DEXTROSE 50% 50 ML SYRINGE IV PRN (08:30)
[2020-12-11] MEDS ORDERED: GLUCAGON FOR INJ 1 MG VIAL SQ PRN (08:30)
[2020-12-11] MEDS ORDERED: GLUCOSE 40% GEL 15 GM TUBE PO PRN (08:30)
[2020-12-11] MEDS: METOPROLOL SUCC 50MG EXT REL TAB PO SCH (08:53)
[2020-12-11] MEDS: CHOLECALCIFEROL 1,000 UNITS 25 MCG TAB PO SCH (08:53)
[2020-12-11] MEDS: ESCITALOPRAM OXALATE 20 MG TAB PO SCH (08:53)
[2020-12-11] MEDS ORDERED: ATOVAQUONE 750 MG/5 ML UDC PO SCH (09:00)
--- NOTE | 2020-12-11 10:38 | Electrocardiogram Report ---
Test Reason : Blood Pressure : / mmHG Vent. Rate : 076 BPM Atrial Rate : 076 BPM P-R Int : 232 ms QRS Dur : 094 ms QT Int : 364 ms P-R-T Axes : 073 -52 050 degrees QTc Int : 409 ms Sinus rhythm with 1st degree A-V block Left anterior fascicular block Abnormal ECG When compared with ECG of 08-DEC-2020 22:01, No significant change was found Confirmed by Van Gutierrez ([id number]) on 12/11/2020 10:38:42 AM Referred By: REFERRED SELF Confirmed By:Van Gutierrez
[2020-12-11] MEDS: INSULIN ASPART 100 UNITS/ML 3 ML PEN SC SCH ×3 (13:36→21:08)
--- NOTE | 2020-12-11 16:52 | Hospitalist Progress Note ---
Date of Service December 11, 2020 Assessment & Plan (1) Babesiosis: Plan: Initial screening peripheral smear for anaplasmosis was thought to possibly represent either malaria or babesiosis. Patient has not had any travel to any malaria-endemic areas, so he is therefore been empirically treated for babesiosis, babesiosis smear shows parasitemia of 1-1.9% Babesiosis antibody test will also be sent-sent titer and PCR DNA test also today Lyme titer negative, anaplasmosis smear negative Patient remains febrile today and is hemolyzing a bit and platelets are down to 30 He does feel improved however and is not having any difficulty with bleeding -Continue Tylenol as needed for fevers -Continue maintenance IV fluids -Continue atovaquone 750 mg p.o. every 12 hours, azithromycin 500 mg IV daily for treatment of presumptive babesiosis -Continue doxycycline 100 mg IV every 12 hours empirically in case of coinfection with anaplasmosis and/or Lyme disease -Consult infectious disease for further recommendations-I sent a [place] connect and if I do not hear back from Dr. 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 -Follow CBC, CMP, LDH, haptoglobin in the morning (2) Thrombocytopenia: Plan: Platelets are 40 upon admission and now down to 30 as above, secondary to babesiosis No evidence of bleeding at this time CT of the abdomen/pelvis on 12/08 does show some mild splenomegaly at that time of 13 cm Follow CBC in the morning If platelets less than 15,000 or has evidence of bleeding with platelets less than 50,000, would transfuse platelets -Discontinue home aspirin (3) Weakness: Plan: Presumptively secondary to babesiosis type infection, improving today with IV fluids and treatment of fever (4) Acute hyponatremia: Plan: Sodium 130 upon admission and now improved to 131 with IV fluid hydration Continue IV fluids (5) Hypomagnesemia: Plan: Magnesium 1.4 upon admission secondary to dehydration and fevers and poor p.o. intake Was given 3 g of magnesium sulfate IV, and repeat magnesium today is improved to 1.8 Follow magnesium level in the morning (6) Hyperlipidemia: Plan: Continue atorvastatin 80 mg daily (7) Hypertension: Plan: Blood pressures are acceptable Hold home amlodipine, aspirin, lisinopril. Continue metoprolol succinate 100 mg every morning with hold parameters (8) Sleep apnea: Plan: Ordered CPAP 9 cm H2O for at bedtime and as needed for naps (9) Depression: Plan: No acute issues Continue Lexapro 20 mg daily (10) Obesity: Plan: BMI 44.0 Needs weight loss counseling (11) Diabetes mellitus type 2 in obese: Plan: Blood sugars are mildly elevated here Start NovoLog sliding scale Holding home Metformin Check hemoglobin A1c in the morning Plan: DVT prophylaxis-none at this time due to thrombocytopenia Disposition-continued stay on medical floor with telemetry Admission and Anticipated Discharge Date Admission Date: December 11, 2020 Subjective Patient had a fever at lunchtime today but after that broke with Tylenol, he is feeling much better. He was sleeping when I came in. He denies any headache or chest pain, no shortness of breath, no abdominal pain or nausea. No diarrhea. No blood in the stool or urine. He is making urine. No bloody noses. Telemetry with sinus rhythm with first-degree AV block with rates in the 70s, occasional [place] 1 Review of Systems Review of Systems: All systems reviewed & are unremarkable except as noted in HPI & below Physical Exam Constitutional: WD/WN, vitals as above + morbidly obese Eyes: PERRL, conjunctivae normal, anicteric sclerae ENMT: external ear and nose normal, oropharynx normal Neck: trachea midline, no thyromegaly Respiratory: normal respiratory effort, lungs clear to auscultation Cardiovascular: RRR, no murmur, no edema Chest (Breasts): Chest: normal inspection of chest Gastrointestinal (Abdomen): normal bowel sounds, soft, nontender, no hepatosplenomegaly Musculoskeletal: Extremities: extremities normal to inspection; no cyanosis and no clubbing Skin: no rashes, warm and dry Neurologic: moves all extremities and awake; no focal motor deficits Psychiatric: A+Ox3, euthymic affect Lymphatic: no lymphedema Results & Data Results & Data ([facility]) Vital Signs (Past 12 Hours) Vital Signs Temp Pulse Pulse Resp BP Pulse Ox 12/11/20 16:33 70 12/11/20 15:45 36.6 C 60 20 117/72 91 12/11/20 12:16 38.8 C H 79 20 122/63 90 12/11/20 08:16 36.5 C 85 20 110/64 90 12/11/20 07:35 73 12/11/20 06:33 37.2 C Laboratory Results 12/11/20 12/11/20 12/11/20 Range/Units 11:43 10:03 06:59 WBC (4.8-10.8) K/uL RBC (4.7-6.1) M/uL Hgb (14.0-18.0) g/dL Hct (42-52) % MCV (80-100) fL MCH (25-34) pg MCHC (32-36) g/dL RDW Std Deviation (36.4-46.3) fL RDW Coeff of Deon (11.5-14.5) % Plt Count (130-400) K/uL MPV (7.4-10.4) fL Immature Gran % (Auto) % Neut % (Auto) % Lymph % (Auto) % [place] % (Auto) % Eos % (Auto) % Baso % (Auto) % Neut # (Auto) (1.4-6.5) K/uL Lymph # (Auto) (1.2-3.4) K/uL [place] # (Auto) (0.11-0.59) K/uL Eos # (Auto) (0-0.5) K/uL Baso # (Auto) (0-0.2) K/uL Immature Gran # (Auto) (0.00-0.02) K/uL Neutrophils % (Manual) % Lymphocytes % (Manual) % Reactive Lymphs % (Man) % Monocytes % (Manual) % Eosinophils % (Manual) % Metamyelocytes % (Man) % Neutrophils # (Manual) (1.4-6.5) K/uL Total Absolute Neuts (1.4-6.5) K/uL Lymphocytes # (Manual) (1.2-3.4) K/uL Reactive Lymphs # K/uL Total Abs Lymphocytes (1.2-3.4) K/uL Monocytes # (Manual) (0.11-0.59) K/uL Eosinophils # (Manual) (0-0.5) K/uL Metamyelocytes # (Man) (0-0) K/uL Platelet Estimate (Normal) Polychromasia PT (9.0-12.0) Seconds INR (0.9-1.1) APTT (21.0-31.0) Seconds PTT Ratio Sodium (136-145) mmol/L Potassium (3.5-5.1) mmol/L Chloride (98-107) mmol/L Carbon Dioxide (21-32) mmol/L Anion Gap (3-11) BUN (7-18) mg/dl Creatinine (0.6-1.4) mg/dl Est Cr Clr Drug Dosing ml/min Est GFR ( Amer) ml/min Est GFR (Non-Af Amer) ml/min BUN/Creatinine Ratio (10-20) Glucose (70-99) mg/dl POC Glucose 176 H (70-99) mg/dl Lactate (0.4-2.0) mmol/L Calcium (8.5-10.1) mg/dl Magnesium 1.8 (1.8-2.4) mg/dl Total Bilirubin (0.2-1) mg/dl AST (15-37) U/L ALT (12-78) U/L Alkaline Phosphatase (45-117) U/L Total Protein (6.4-8.2) gm/dl Albumin (3.4-5.0) gm/dl Globulin (2.5-4.0) gm/dl Albumin/Globulin Ratio (0.9-2) Urine Color Urine Appearance (Clear) Urine pH (4.5-7.5) Ur Specific [place] (1.000-1.030) Urine Protein (Negative) Urine Glucose (UA) (Negative) Urine Ketones (Negative) Urine Blood (Negative) Urine Nitrite (Negative) Urine Bilirubin (Negative) Urine Urobilinogen (Negative) Ur Leukocyte Esterase (Negative) Urine WBC (Auto) (0-5) /hpf Urine RBC (Auto) (0-4) /hpf U Hyaline Cast (Auto) (0-5) /lpf U Epithel Cells (Auto) (0-5) /lpf Urine Bacteria (Auto) (Negative) Ur Renal Epithelial Cell Granular Casts (0) /lpf Anaplasma Smear A. phagocytophilum DNA Babesia microti IgG Ab Pending Babesia microti IgM Ab Pending Babesia microti DNA PCR Pending Babesia Interpretation Pending Lyme Disease IgG Ab (Negative) Lyme Disease IgM Ab (Negative) COVID-19 Eval Order SARS-CoV-2 (PCR) (Negative) 12/11/20 12/11/20 12/11/20 Range/Units 06:59 06:59 00:00 WBC 5.07 (4.8-10.8) K/uL RBC 3.68 L (4.7-6.1) M/uL Hgb 11.0 L (14.0-18.0) g/dL Hct 32.2 L (42-52) % MCV 87.5 (80-100) fL MCH 29.9 (25-34) pg MCHC 34.2 (32-36) g/dL RDW Std Deviation 49.2 H (36.4-46.3) fL RDW Coeff of Deon 15.3 H (11.5-14.5) % Plt Count 30 L (130-400) K/uL MPV 11.6 H (7.4-10.4) fL Immature Gran % (Auto) 0.4 % Neut % (Auto) 41.2 % Lymph % (Auto) 40.6 % [place] % (Auto) 17.2 % Eos % (Auto) 0.4 % Baso % (Auto) 0.2 % Neut # (Auto) 2.09 (1.4-6.5) K/uL Lymph # (Auto) 2.06 (1.2-3.4) K/uL [place] # (Auto) 0.87 H (0.11-0.59) K/uL Eos # (Auto) 0.02 (0-0.5) K/uL Baso # (Auto) 0.01 (0-0.2) K/uL Immature Gran # (Auto) 0.02 (0.00-0.02) K/uL Neutrophils % (Manual) % Lymphocytes % (Manual) % Reactive Lymphs % (Man) % Monocytes % (Manual) % Eosinophils % (Manual) % Metamyelocytes % (Man) % Neutrophils # (Manual) (1.4-6.5) K/uL Total Absolute Neuts (1.4-6.5) K/uL Lymphocytes # (Manual) (1.2-3.4) K/uL Reactive Lymphs # K/uL Total Abs Lymphocytes (1.2-3.4) K/uL Monocytes # (Manual) (0.11-0.59) K/uL Eosinophils # (Manual) (0-0.5) K/uL Metamyelocytes # (Man) (0-0) K/uL Platelet Estimate (Normal) Polychromasia PT (9.0-12.0) Seconds INR (0.9-1.1) APTT (21.0-31.0) Seconds PTT Ratio Sodium 131 L (136-145) mmol/L Potassium 3.8 (3.5-5.1) mmol/L Chloride 99 (98-107) mmol/L Carbon Dioxide 29 (21-32) mmol/L Anion Gap 3.0 (3-11) BUN 11 (7-18) mg/dl Creatinine 0.57 L (0.6-1.4) mg/dl Est Cr Clr Drug Dosing 160.3 ml/min Est GFR ( Amer) 124.9 ml/min Est GFR (Non-Af Amer) 107.8 ml/min BUN/Creatinine Ratio 19.9 (10-20) Glucose 135 H (70-99) mg/dl POC Glucose (70-99) mg/dl Lactate (0.4-2.0) mmol/L Calcium 8.1 L (8.5-10.1) mg/dl Magnesium (1.8-2.4) mg/dl Total Bilirubin 1.9 H (0.2-1) mg/dl AST 62 H (15-37) U/L ALT 53 (12-78) U/L Alkaline Phosphatase 44 L (45-117) U/L Total Protein 6.7 (6.4-8.2) gm/dl Albumin 2.7 L (3.4-5.0) gm/dl Globulin 4.0 (2.5-4.0) gm/dl Albumin/Globulin Ratio 0.7 L (0.9-2) Urine Color Urine Appearance (Clear) Urine pH (4.5-7.5) Ur Specific [place] (1.000-1.030) Urine Protein (Negative) Urine Glucose (UA) (Negative) Urine Ketones (Negative) Urine Blood (Negative) Urine Nitrite (Negative) Urine Bilirubin (Negative) Urine Urobilinogen (Negative) Ur Leukocyte Esterase (Negative) Urine WBC (Auto) (0-5) /hpf Urine RBC (Auto) (0-4) /hpf U Hyaline Cast (Auto) (0-5) /lpf U Epithel Cells (Auto) (0-5) /lpf Urine Bacteria (Auto) (Negative) Ur Renal Epithelial Cell Granular Casts (0) /lpf Anaplasma Smear A. phagocytophilum DNA Babesia microti IgG Ab Babesia microti IgM Ab Babesia microti DNA PCR Babesia Interpretation Lyme Disease IgG Ab (Negative) Lyme Disease IgM Ab (Negative) COVID-19 Eval Order SARS-CoV-2 (PCR) NEGATIVE (Negative) 12/11/20 12/10/20 12/10/20 Range/Units 00:00 21:56 21:45 WBC (4.8-10.8) K/uL RBC (4.7-6.1) M/uL Hgb (14.0-18.0) g/dL Hct (42-52) % MCV (80-100) fL MCH (25-34) pg MCHC (32-36) g/dL RDW Std Deviation (36.4-46.3) fL RDW Coeff of Deon (11.5-14.5) % Plt Count (130-400) K/uL MPV (7.4-10.4) fL Immature Gran % (Auto) % Neut % (Auto) % Lymph % (Auto) % [place] % (Auto) % Eos % (Auto) % Baso % (Auto) % Neut # (Auto) (1.4-6.5) K/uL Lymph # (Auto) (1.2-3.4) K/uL [place] # (Auto) (0.11-0.59) K/uL Eos # (Auto) (0-0.5) K/uL Baso # (Auto) (0-0.2) K/uL Immature Gran # (Auto) (0.00-0.02) K/uL Neutrophils % (Manual) % Lymphocytes % (Manual) % Reactive Lymphs % (Man) % Monocytes % (Manual) % Eosinophils % (Manual) % Metamyelocytes % (Man) % Neutrophils # (Manual) (1.4-6.5) K/uL Total Absolute Neuts (1.4-6.5) K/uL Lymphocytes # (Manual) (1.2-3.4) K/uL Reactive Lymphs # K/uL Total Abs Lymphocytes (1.2-3.4) K/uL Monocytes # (Manual) (0.11-0.59) K/uL Eosinophils # (Manual) (0-0.5) K/uL Metamyelocytes # (Man) (0-0) K/uL Platelet Estimate (Normal) Polychromasia PT (9.0-12.0) Seconds INR (0.9-1.1) APTT (21.0-31.0) Seconds PTT Ratio Sodium (136-145) mmol/L Potassium (3.5-5.1) mmol/L Chloride (98-107) mmol/L Carbon Dioxide (21-32) mmol/L Anion Gap (3-11) BUN (7-18) mg/dl Creatinine (0.6-1.4) mg/dl Est Cr Clr Drug Dosing ml/min Est GFR ( Amer) ml/min Est GFR (Non-Af Amer) ml/min BUN/Creatinine Ratio (10-20) Glucose (70-99) mg/dl POC Glucose (70-99) mg/dl Lactate 1.6 (0.4-2.0) mmol/L Calcium (8.5-10.1) mg/dl Magnesium (1.8-2.4) mg/dl Total Bilirubin (0.2-1) mg/dl AST (15-37) U/L ALT (12-78) U/L Alkaline Phosphatase (45-117) U/L Total Protein (6.4-8.2) gm/dl Albumin (3.4-5.0) gm/dl Globulin (2.5-4.0) gm/dl Albumin/Globulin Ratio (0.9-2) Urine Color [place] Urine Appearance Clear (Clear) Urine pH 5.5 (4.5-7.5) Ur Specific [place] 1.025 (1.000-1.030) Urine Protein 1+ H (Negative) Urine Glucose (UA) Negative (Negative) Urine Ketones Trace H (Negative) Urine Blood Negative (Negative) Urine Nitrite Positive A (Negative) Urine Bilirubin 1+ H (Negative) Urine Urobilinogen Positive H (Negative) Ur Leukocyte Esterase Trace H (Negative) Urine WBC (Auto) 1-5 (0-5) /hpf Urine RBC (Auto) 5-10 H (0-4) /hpf U Hyaline Cast (Auto) 5-10 H (0-5) /lpf U Epithel Cells (Auto) >30 H (0-5) /lpf Urine Bacteria (Auto) Negative (Negative) Ur Renal Epithelial Cell Not Reportable Granular Casts 5-10 H (0) /lpf Anaplasma Smear A. phagocytophilum DNA Babesia microti IgG Ab Babesia microti IgM Ab Babesia microti DNA PCR Babesia Interpretation Lyme Disease IgG Ab (Negative) Lyme Disease IgM Ab (Negative) COVID-19 Eval Order Covid19 at [facility] SARS-CoV-2 (PCR) (Negative) 12/10/20 12/10/20 12/10/20 Range/Units 21:45 21:45 21:45 WBC (4.8-10.8) K/uL RBC (4.7-6.1) M/uL Hgb (14.0-18.0) g/dL Hct (42-52) % MCV (80-100) fL MCH (25-34) pg MCHC (32-36) g/dL RDW Std Deviation (36.4-46.3) fL RDW Coeff of Deon (11.5-14.5) % Plt Count (130-400) K/uL MPV (7.4-10.4) fL Immature Gran % (Auto) % Neut % (Auto) % Lymph % (Auto) % [place] % (Auto) % Eos % (Auto) % Baso % (Auto) % Neut # (Auto) (1.4-6.5) K/uL Lymph # (Auto) (1.2-3.4) K/uL [place] # (Auto) (0.11-0.59) K/uL Eos # (Auto) (0-0.5) K/uL Baso # (Auto) (0-0.2) K/uL Immature Gran # (Auto) (0.00-0.02) K/uL Neutrophils % (Manual) % Lymphocytes % (Manual) % Reactive Lymphs % (Man) % Monocytes % (Manual) % Eosinophils % (Manual) % Metamyelocytes % (Man) % Neutrophils # (Manual) (1.4-6.5) K/uL Total Absolute Neuts (1.4-6.5) K/uL Lymphocytes # (Manual) (1.2-3.4) K/uL Reactive Lymphs # K/uL Total Abs Lymphocytes (1.2-3.4) K/uL Monocytes # (Manual) (0.11-0.59) K/uL Eosinophils # (Manual) (0-0.5) K/uL Metamyelocytes # (Man) (0-0) K/uL Platelet Estimate (Normal) Polychromasia PT 12.4 H (9.0-12.0) Seconds INR 1.2 H (0.9-1.1) APTT 29.3 (21.0-31.0) Seconds PTT Ratio 1.1 Sodium (136-145) mmol/L Potassium (3.5-5.1) mmol/L Chloride (98-107) mmol/L Carbon Dioxide (21-32) mmol/L Anion Gap (3-11) BUN (7-18) mg/dl Creatinine (0.6-1.4) mg/dl Est Cr Clr Drug Dosing ml/min Est GFR ( Amer) ml/min Est GFR (Non-Af Amer) ml/min BUN/Creatinine Ratio (10-20) Glucose (70-99) mg/dl POC Glucose (70-99) mg/dl Lactate (0.4-2.0) mmol/L Calcium (8.5-10.1) mg/dl Magnesium (1.8-2.4) mg/dl Total Bilirubin (0.2-1) mg/dl AST (15-37) U/L ALT (12-78) U/L Alkaline Phosphatase (45-117) U/L Total Protein (6.4-8.2) gm/dl Albumin (3.4-5.0) gm/dl Globulin (2.5-4.0) gm/dl Albumin/Globulin Ratio (0.9-2) Urine Color Urine Appearance (Clear) Urine pH (4.5-7.5) Ur Specific [place] (1.000-1.030) Urine Protein (Negative) Urine Glucose (UA) (Negative) Urine Ketones (Negative) Urine Blood (Negative) Urine Nitrite (Negative) Urine Bilirubin (Negative) Urine Urobilinogen (Negative) Ur Leukocyte Esterase (Negative) Urine WBC (Auto) (0-5) /hpf Urine RBC (Auto) (0-4) /hpf U Hyaline Cast (Auto) (0-5) /lpf U Epithel Cells (Auto) (0-5) /lpf Urine Bacteria (Auto) (Negative) Ur Renal Epithelial Cell Granular Casts (0) /lpf Anaplasma Smear A. phagocytophilum DNA Pending Babesia microti IgG Ab Babesia microti IgM Ab Babesia microti DNA PCR Babesia Interpretation Lyme Disease IgG Ab Negative (Negative) Lyme Disease IgM Ab Negative (Negative) COVID-19 Eval Order SARS-CoV-2 (PCR) (Negative) 12/10/20 12/10/20 12/10/20 Range/Units 21:45 21:45 21:45 WBC 4.88 (4.8-10.8) K/uL RBC 4.00 L (4.7-6.1) M/uL Hgb 12.1 L (14.0-18.0) g/dL Hct 35.6 L (42-52) % MCV 89.0 (80-100) fL MCH 30.3 (25-34) pg MCHC 34.0 (32-36) g/dL RDW Std Deviation 49.7 H (36.4-46.3) fL RDW Coeff of Deon 15.3 H (11.5-14.5) % Plt Count 40 L (130-400) K/uL MPV 11.8 H (7.4-10.4) fL Immature Gran % (Auto) % Neut % (Auto) % Lymph % (Auto) % [place] % (Auto) % Eos % (Auto) % Baso % (Auto) % Neut # (Auto) (1.4-6.5) K/uL Lymph # (Auto) (1.2-3.4) K/uL [place] # (Auto) (0.11-0.59) K/uL Eos # (Auto) (0-0.5) K/uL Baso # (Auto) (0-0.2) K/uL Immature Gran # (Auto) (0.00-0.02) K/uL Neutrophils % (Manual) 51.7 % Lymphocytes % (Manual) 23.7 % Reactive Lymphs % (Man) 11.4 % Monocytes % (Manual) 11.4 % Eosinophils % (Manual) 0.9 % Metamyelocytes % (Man) 0.9 % Neutrophils # (Manual) 2.52 (1.4-6.5) K/uL Total Absolute Neuts 2.52 (1.4-6.5) K/uL Lymphocytes # (Manual) 1.16 L (1.2-3.4) K/uL Reactive Lymphs # 0.56 K/uL Total Abs Lymphocytes 1.71 (1.2-3.4) K/uL Monocytes # (Manual) 0.56 (0.11-0.59) K/uL Eosinophils # (Manual) 0.04 (0-0.5) K/uL Metamyelocytes # (Man) 0.04 H (0-0) K/uL Platelet Estimate Decreased L (Normal) Polychromasia 1+ PT (9.0-12.0) Seconds INR (0.9-1.1) APTT (21.0-31.0) Seconds PTT Ratio Sodium 130 L (136-145) mmol/L Potassium 3.8 (3.5-5.1) mmol/L Chloride 98 (98-107) mmol/L Carbon Dioxide 27 (21-32) mmol/L Anion Gap 5.0 (3-11) BUN 16 (7-18) mg/dl Creatinine 0.77 D (0.6-1.4) mg/dl Est Cr Clr Drug Dosing 118.0 ml/min Est GFR ( Amer) 110.4 ml/min Est GFR (Non-Af Amer) 95.2 ml/min BUN/Creatinine Ratio 20.6 H (10-20) Glucose 176 H (70-99) mg/dl POC Glucose (70-99) mg/dl Lactate (0.4-2.0) mmol/L Calcium 8.7 (8.5-10.1) mg/dl Magnesium 1.4 L (1.8-2.4) mg/dl Total Bilirubin 1.8 H (0.2-1) mg/dl AST 63 H (15-37) U/L ALT 56 (12-78) U/L Alkaline Phosphatase 53 (45-117) U/L Total Protein 7.7 (6.4-8.2) gm/dl Albumin 2.9 L (3.4-5.0) gm/dl Globulin 4.8 H (2.5-4.0) gm/dl Albumin/Globulin Ratio 0.6 L (0.9-2) Urine Color Urine Appearance (Clear) Urine pH (4.5-7.5) Ur Specific [place] (1.000-1.030) Urine Protein (Negative) Urine Glucose (UA) (Negative) Urine Ketones (Negative) Urine Blood (Negative) Urine Nitrite (Negative) Urine Bilirubin (Negative) Urine Urobilinogen (Negative) Ur Leukocyte Esterase (Negative) Urine WBC (Auto) (0-5) /hpf Urine RBC (Auto) (0-4) /hpf U Hyaline Cast (Auto) (0-5) /lpf U Epithel Cells (Auto) (0-5) /lpf Urine Bacteria (Auto) (Negative) Ur Renal Epithelial Cell Granular Casts (0) /lpf Anaplasma Smear See Comment A. phagocytophilum DNA Babesia microti IgG Ab Babesia microti IgM Ab Babesia microti DNA PCR Babesia Interpretation Lyme Disease IgG Ab (Negative) Lyme Disease IgM Ab (Negative) COVID-19 Eval Order SARS-CoV-2 (PCR) (Negative) PG Care Time/CCT Total # of Minutes Spent Total Time Spent with Patient: Total time spent is greater than 50% in coordination of care (as documented) at patient's floor/unit and/or counseling patient: Coding Level of Care Code None Diagnoses Babesiosis B60.00 Thrombocytopenia D69.6 Weakness R53.1 Acute hyponatremia E87.1 Hypomagnesemia E83.42 Hyperlipidemia E78.5 Hypertension I10 Sleep apnea G47.30 Depression F32.9 Obesity E66.9 Diabetes mellitus type 2 in obese E11.69; E66.9
[2020-12-11] MEDS: AZITHROMYCIN 500 MG in DEXTROSE 5% 250 ML IV SCH (18:01)
[2020-12-11] MEDS ORDERED: NON-FORMULARY MEDICATION (Coq10 (Ubiquinol) 200 mg Capsule) PO SCH (21:00)
[2020-12-11] MEDS ORDERED: ASPIRIN 81 MG ECTAB PO SCH (21:00)
[2020-12-11] MEDS: ATORVASTATIN 40 MG TAB PO SCH (21:05)
[2020-12-11] MEDS: ATOVAQUONE 750 MG/5 ML UDC PO SCH (21:05)
[2020-12-12 06:05] LABS: Hematocrit (blood only) 33.6 % (42-52); Hemoglobin 11.3 g/dL (14.0-18.0); Mean Corpuscular Hemoglobin 30.2 pg (25-34); Mean Corpuscular Hgb Conc 33.6 g/dL (32-36); Mean Corpuscular Volume 89.8 fL (80-100); Mean Platelet Volume 12.2 fL (7.4-10.4); Platelet Count 34 K/uL (130-400); RDW Coefficient of Variation 15.6 % (11.5-14.5); RDW Standard Deviation 51.3 fL (36.4-46.3); Red Blood Count 3.74 M/uL (4.7-6.1); White Blood Count 3.92 K/uL (4.8-10.8)
[2020-12-12 06:36] LABS: Basophils # (auto) 0.02 K/uL (0-0.2); Basophils % (auto) 0.5 %; Eosinophils # (auto) 0.03 K/uL (0-0.5); Eosinophils % (auto) 0.8 %; Immature Granulocytes # (auto) 0.02 K/uL (0.00-0.02); Immature Granulocytes % (auto) 0.5 %; Lymphocytes # (auto) 1.78 K/uL (1.2-3.4); Lymphocytes % (auto) 45.4 %; Monocytes # (auto) 0.68 K/uL (0.11-0.59); Monocytes % (auto) 17.3 %; Neutrophils # (auto) 1.39 K/uL (1.4-6.5); Neutrophils % (auto) 35.5 %; Polychromasia 1+
[2020-12-12 06:47] LABS: Albumin Level 2.6 gm/dl (3.4-5.0); BUN Creatinine Ratio 21.6 (10-20); Calcium 8.1 mg/dl (8.5-10.1); Creatinine Clr Calc Pharmacy 177.7 ml/min; Est GFR (African American) 130.7 ml/min; Est GFR (Non-African American) 112.8 ml/min; Magnesium 1.8 mg/dl (1.8-2.4); Potassium 4.1 mmol/L (3.5-5.1)
[2020-12-12 06:49] LABS: Albumin Globulin Ratio 0.6 (0.9-2); Bilirubin,Total 1.5 mg/dl (0.2-1); Globulin 4.2 gm/dl (2.5-4.0); Total Protein 6.8 gm/dl (6.4-8.2)
[2020-12-12] MEDS: ATOVAQUONE 750 MG/5 ML UDC PO SCH ×2 (10:11→21:27)
[2020-12-12] MEDS: ESCITALOPRAM OXALATE 20 MG TAB PO SCH (10:12)
[2020-12-12] MEDS: METOPROLOL SUCC 50MG EXT REL TAB PO SCH (10:12)
[2020-12-12] MEDS: CHOLECALCIFEROL 1,000 UNITS 25 MCG TAB PO SCH (10:12)
[2020-12-12] MEDS: INSULIN ASPART 100 UNITS/ML 3 ML PEN SC SCH ×4 (10:48→21:26)
[2020-12-12] MEDS: NSS + 20MEQ KCL 20 MEQ/1,000 ML BAG IV SCH (12:31)
--- NOTE | 2020-12-12 17:11 | Hospitalist Progress Note ---
Date of Service December 12, 2020 Assessment & Plan (1) Babesiosis: Plan: Initial screening peripheral smear for anaplasmosis was thought to possibly represent either malaria or babesiosis. Patient has not had any travel to any malaria-endemic areas, so he is therefore been empirically treated for babesiosis, babesiosis smear shows parasitemia of 1-1.9% initially and now is decreasing down to 0.1-0.9% on 12/12 Babesiosis antibody titer and PCR DNA sent and are pending Lyme titer negative, anaplasmosis smear negative, Anaplasma DNA PCR pending Patient remains febrile in the last 24 hours and is hemolyzing a bit and platelets are down to 30 at the adrien, but total bilirubin decreasing and platelets rising today to 34, hemoglobin stable at 11.4 Not having any bleeding issues I discussed his care with infectious disease, Dr. Cool, on the phone on 12/11- he recommended continued treatment with atovaquone and azithromycin as we are doing and expects that he will improve fairly quickly. He also noted that at times the parasitemia level may not decrease as much as would be expected because there can be parasites inside red blood cells that have not yet been taken up by the spleen. However, his parasitemia level is decreasing today -Await official ID consult on Sunday via iPad -Continue Tylenol as needed for fevers -Can now discontinue maintenance IV fluids -Continue atovaquone 750 mg p.o. every 12 hours x10-day course-prescription already sent to his outpatient pharmacy as they needed time to order it in -Continue azithromycin 500 mg daily but change to oral for tomorrow-this will also need to be a 10-day course -Continue doxycycline 100 mg every 12 hours empirically in case of coinfection with anaplasmosis and/or Lyme disease-we will also change this to oral for tomorrow -Follow CBC, CMP, LDH in the morning, haptoglobin is pending (2) Thrombocytopenia: Plan: Platelets were 40 upon admission and then down to 30 , secondary to babesiosis Plts improving today up to 34k No evidence of bleeding at this time CT of the abdomen/pelvis on 12/08 does show some mild splenomegaly at that time of 14 cm Follow CBC in the morning If platelets less than 15,000 or has evidence of bleeding with platelets less than 50,000, would transfuse platelets -Discontinued home aspirin (3) Weakness: Plan: Presumptively secondary to babesiosis type infection, improving today with IV fluids and treatment of fever, Babesiosis dc IVFs (4) Acute hyponatremia: Plan: Sodium 130 upon admission and now improved to 135 with IV fluid hydration will now discontinue IV fluids (5) Hypomagnesemia: Plan: Magnesium 1.4 upon admission secondary to dehydration and fevers and poor p.o. intake Was given 3 g of magnesium sulfate IV, and repeat magnesium today is improved to 1.8 (6) Hyperlipidemia: Plan: Continue atorvastatin 80 mg daily (7) Hypertension: Plan: Blood pressures are now increasing off BP meds restart home amlodipine, lisinopril in the AM Continue metoprolol succinate 100 mg every morning with hold parameters (8) Sleep apnea: Plan: CPAP 9 cm H2O for at bedtime and as needed for naps (9) Depression: Plan: No acute issues Continue Lexapro 20 mg daily (10) Obesity: Plan: BMI 44.0 Needs weight loss counseling (11) Diabetes mellitus type 2 in obese: Plan: Blood sugars are controlled continue NovoLog sliding scale Holding home Metformin Check hemoglobin [id number] (12) Mobitz I: Plan: Having intermittent Mobitz 1 second-degree heart block that is asymptomatic Follow on telemetry Consider lowering dose of metoprolol if continues to spike electrolyte replacement Plan: DVT prophylaxis-none at this time due to thrombocytopenia Disposition-continued stay on medical floor with telemetry, but could possibly discharged home on Sunday if continues to improve. His atovaquone is already been called into his pharmacy in advance as they reported it would take at least 24 hours to order in. Admission and Anticipated Discharge Date Admission Date: December 11, 2020 Subjective Patient says he is feeling much better today. No bleeding from anywhere. He is moving his bowels. Is eating and drinking without nausea or vomiting. Denies headache. He had a fever last night but only a low-grade temperature today at lunchtime. Denies chest pains or shortness of breath, no cough. He is making plenty of urine. Telemetry with sinus rhythm with rates in the 70s to 80s and first-degree AV block with a second-degree Mobitz type I at times Review of Systems Review of Systems: All systems reviewed & are unremarkable except as noted in HPI & below Physical Exam Constitutional: WD/WN, vitals as above + morbidly obese Eyes: + anicteric sclerae ENMT: external ear and nose normal, oropharynx normal Neck: trachea midline, no thyromegaly Respiratory: normal respiratory effort, lungs clear to auscultation Cardiovascular: RRR, no murmur, no edema Chest (Breasts): Chest: normal inspection of chest Gastrointestinal (Abdomen): normal bowel sounds, soft, nontender, no hepatosplenomegaly Inspection/Auscultation: + abdomen abnormal to inspection (Morbidly obese) Musculoskeletal: Extremities: extremities normal to inspection; no cyanosis and no clubbing Skin: no rashes, warm and dry Neurologic: moves all extremities and awake; no focal motor deficits Psychiatric: A+Ox3, euthymic affect Lymphatic: no lymphedema Results & Data Results & Data ([facility]) Vital Signs (Past 12 Hours) Vital Signs Temp Pulse Pulse Resp BP BP Pulse Ox 12/12/20 12:00 37.7 C H 71 18 129/80 92 12/12/20 08:05 37.4 C 78 20 101/61 94 12/12/20 08:00 68 Laboratory Results 12/12/20 12/12/20 12/12/20 Range/Units 11:56 07:25 05:27 WBC (4.8-10.8) K/uL RBC (4.7-6.1) M/uL Hgb (14.0-18.0) g/dL Hct (42-52) % MCV (80-100) fL MCH (25-34) pg MCHC (32-36) g/dL RDW Std Deviation (36.4-46.3) fL RDW Coeff of Deon (11.5-14.5) % Plt Count (130-400) K/uL MPV (7.4-10.4) fL Immature Gran % (Auto) % Neut % (Auto) % Lymph % (Auto) % [place] % (Auto) % Eos % (Auto) % Baso % (Auto) % Neut # (Auto) (1.4-6.5) K/uL Lymph # (Auto) (1.2-3.4) K/uL [place] # (Auto) (0.11-0.59) K/uL Eos # (Auto) (0-0.5) K/uL Baso # (Auto) (0-0.2) K/uL Immature Gran # (Auto) (0.00-0.02) K/uL Polychromasia Haptoglobin Pending Sodium (136-145) mmol/L Potassium (3.5-5.1) mmol/L Chloride (98-107) mmol/L Carbon Dioxide (21-32) mmol/L Anion Gap (3-11) BUN (7-18) mg/dl Creatinine (0.6-1.4) mg/dl Est Cr Clr Drug Dosing ml/min Est GFR ( Amer) ml/min Est GFR (Non-Af Amer) ml/min BUN/Creatinine Ratio (10-20) Glucose (70-99) mg/dl POC Glucose 139 H 120 H (70-99) mg/dl Estimat Average Glucose Hemoglobin A1c Calcium (8.5-10.1) mg/dl Magnesium (1.8-2.4) mg/dl Total Bilirubin (0.2-1) mg/dl AST (15-37) U/L ALT (12-78) U/L Alkaline Phosphatase (45-117) U/L Lactate Dehydrogenase (87-241) U/L Total Protein (6.4-8.2) gm/dl Albumin (3.4-5.0) gm/dl Globulin (2.5-4.0) gm/dl Albumin/Globulin Ratio (0.9-2) 12/12/20 12/12/20 12/12/20 Range/Units 05:27 05:27 05:26 WBC (4.8-10.8) K/uL RBC (4.7-6.1) M/uL Hgb (14.0-18.0) g/dL Hct (42-52) % MCV (80-100) fL MCH (25-34) pg MCHC (32-36) g/dL RDW Std Deviation (36.4-46.3) fL RDW Coeff of Deon (11.5-14.5) % Plt Count (130-400) K/uL MPV (7.4-10.4) fL Immature Gran % (Auto) % Neut % (Auto) % Lymph % (Auto) % [place] % (Auto) % Eos % (Auto) % Baso % (Auto) % Neut # (Auto) (1.4-6.5) K/uL Lymph # (Auto) (1.2-3.4) K/uL [place] # (Auto) (0.11-0.59) K/uL Eos # (Auto) (0-0.5) K/uL Baso # (Auto) (0-0.2) K/uL Immature Gran # (Auto) (0.00-0.02) K/uL Polychromasia Haptoglobin Sodium 135 L (136-145) mmol/L Potassium 4.1 (3.5-5.1) mmol/L Chloride 103 (98-107) mmol/L Carbon Dioxide 30 (21-32) mmol/L Anion Gap 2.0 L (3-11) BUN 11 (7-18) mg/dl Creatinine 0.51 L (0.6-1.4) mg/dl Est Cr Clr Drug Dosing 177.7 ml/min Est GFR ( Amer) 130.7 ml/min Est GFR (Non-Af Amer) 112.8 ml/min BUN/Creatinine Ratio 21.6 H (10-20) Glucose 109 H (70-99) mg/dl POC Glucose (70-99) mg/dl Estimat Average Glucose Pending Hemoglobin A1c Pending Calcium 8.1 L (8.5-10.1) mg/dl Magnesium 1.8 (1.8-2.4) mg/dl Total Bilirubin 1.5 H (0.2-1) mg/dl AST 62 H (15-37) U/L ALT 54 (12-78) U/L Alkaline Phosphatase 42 L (45-117) U/L Lactate Dehydrogenase 435 H (87-241) U/L Total Protein 6.8 (6.4-8.2) gm/dl Albumin 2.6 L (3.4-5.0) gm/dl Globulin 4.2 H (2.5-4.0) gm/dl Albumin/Globulin Ratio 0.6 L (0.9-2) 12/12/20 12/11/20 12/11/20 Range/Units 05:26 20:04 17:23 WBC 3.92 L (4.8-10.8) K/uL RBC 3.74 L (4.7-6.1) M/uL Hgb 11.3 L (14.0-18.0) g/dL Hct 33.6 L (42-52) % MCV 89.8 (80-100) fL MCH 30.2 (25-34) pg MCHC 33.6 (32-36) g/dL RDW Std Deviation 51.3 H (36.4-46.3) fL RDW Coeff of Deon 15.6 H (11.5-14.5) % Plt Count 34 L (130-400) K/uL MPV 12.2 H (7.4-10.4) fL Immature Gran % (Auto) 0.5 % Neut % (Auto) 35.5 % Lymph % (Auto) 45.4 % [place] % (Auto) 17.3 % Eos % (Auto) 0.8 % Baso % (Auto) 0.5 % Neut # (Auto) 1.39 L (1.4-6.5) K/uL Lymph # (Auto) 1.78 (1.2-3.4) K/uL [place] # (Auto) 0.68 H (0.11-0.59) K/uL Eos # (Auto) 0.03 (0-0.5) K/uL Baso # (Auto) 0.02 (0-0.2) K/uL Immature Gran # (Auto) 0.02 (0.00-0.02) K/uL Polychromasia 1+ Haptoglobin Sodium (136-145) mmol/L Potassium (3.5-5.1) mmol/L Chloride (98-107) mmol/L Carbon Dioxide (21-32) mmol/L Anion Gap (3-11) BUN (7-18) mg/dl Creatinine (0.6-1.4) mg/dl Est Cr Clr Drug Dosing ml/min Est GFR ( Amer) ml/min Est GFR (Non-Af Amer) ml/min BUN/Creatinine Ratio (10-20) Glucose (70-99) mg/dl POC Glucose 157 H 120 H (70-99) mg/dl Estimat Average Glucose Hemoglobin A1c Calcium (8.5-10.1) mg/dl Magnesium (1.8-2.4) mg/dl Total Bilirubin (0.2-1) mg/dl AST (15-37) U/L ALT (12-78) U/L Alkaline Phosphatase (45-117) U/L Lactate Dehydrogenase (87-241) U/L Total Protein (6.4-8.2) gm/dl Albumin (3.4-5.0) gm/dl Globulin (2.5-4.0) gm/dl Albumin/Globulin Ratio (0.9-2) Babesiosis smear-parasitemia estimated at 0.1-0.9% PG Care Time/CCT Total # of Minutes Spent Total Time Spent with Patient: Total time spent is greater than 50% in coordination of care (as documented) at patient's floor/unit and/or counseling patient: Coding Level of Care Code 64558 Subseq Hosp Care Lvl 3 Diagnoses Babesiosis B60.00 Thrombocytopenia D69.6 Weakness R53.1 Acute hyponatremia E87.1 Hypomagnesemia E83.42 Hyperlipidemia E78.5 Hypertension I10 Sleep apnea G47.30 Depression F32.9 Obesity E66.9 Diabetes mellitus type 2 in obese E11.69; E66.9 Mobitz I I44.1
[2020-12-12] MEDS: DOXYCYCLINE HYCLATE 100 MG CAP PO SCH (18:52)
[2020-12-12] MEDS: AZITHROMYCIN 500 MG in DEXTROSE 5% 250 ML IV SCH (18:55)
[2020-12-12] MEDS ORDERED: DOXYCYCLINE HYCLATE 100 MG CAP PO SCH (21:00)
[2020-12-12] MEDS: ATORVASTATIN 40 MG TAB PO SCH (21:27)
[2020-12-12] MEDS: ACETAMINOPHEN 325 MG TAB PO PRN (23:19)
[2020-12-13 07:35] LABS: Estimated Average Glucose 134 mg/dl; Hemoglobin A1C 6.3 % (4.5-5.6)
[2020-12-13 08:13] LABS: Hematocrit (blood only) 32.8 % (42-52); Hemoglobin 10.9 g/dL (14.0-18.0); Mean Corpuscular Hemoglobin 29.4 pg (25-34); Mean Corpuscular Hgb Conc 33.2 g/dL (32-36); Mean Corpuscular Volume 88.4 fL (80-100); Mean Platelet Volume 11.8 fL (7.4-10.4); Platelet Count 35 K/uL (130-400); RDW Coefficient of Variation 15.7 % (11.5-14.5); Red Blood Count 3.71 M/uL (4.7-6.1); White Blood Count 4.33 K/uL (4.8-10.8)
[2020-12-13 08:38] LABS: Basophils # (auto) 0.02 K/uL (0-0.2); Basophils % (auto) 0.5 %; Eosinophils # (auto) 0.02 K/uL (0-0.5); Eosinophils % (auto) 0.5 %; Immature Granulocytes # (auto) 0.02 K/uL (0.00-0.02); Immature Granulocytes % (auto) 0.5 %; Lymphocytes # (auto) 1.67 K/uL (1.2-3.4); Lymphocytes % (auto) 38.6 %; Monocytes # (auto) 0.82 K/uL (0.11-0.59); Monocytes % (auto) 18.9 %; Neutrophils # (auto) 1.78 K/uL (1.4-6.5)
[2020-12-13 08:47] LABS: Albumin Level 2.5 gm/dl (3.4-5.0); BUN Creatinine Ratio 18.4 (10-20); Calcium 7.9 mg/dl (8.5-10.1); Creatinine Clr Calc Pharmacy 171.2 ml/min; Est GFR (African American) 128.7 ml/min; Magnesium 1.7 mg/dl (1.8-2.4)
[2020-12-13 08:50] LABS: Albumin Globulin Ratio 0.6 (0.9-2); Bilirubin,Total 1.5 mg/dl (0.2-1); Globulin 4.3 gm/dl (2.5-4.0); Total Protein 6.8 gm/dl (6.4-8.2)
[2020-12-13] MEDS: METOPROLOL SUCC 50MG EXT REL TAB PO SCH (08:58)
[2020-12-13] MEDS: DOXYCYCLINE HYCLATE 100 MG CAP PO SCH ×2 (08:58→20:31)
[2020-12-13] MEDS: AZITHROMYCIN 250 MG TAB PO SCH (08:58)
[2020-12-13] MEDS: ATOVAQUONE 750 MG/5 ML UDC PO SCH ×2 (08:58→20:31)
[2020-12-13] MEDS: ESCITALOPRAM OXALATE 20 MG TAB PO SCH (08:58)
[2020-12-13] MEDS: CHOLECALCIFEROL 1,000 UNITS 25 MCG TAB PO SCH (08:58)
[2020-12-13] MEDS: INSULIN ASPART 100 UNITS/ML 3 ML PEN SC SCH ×4 (08:58→20:40)
[2020-12-13] MEDS ORDERED: MAGNESIUM SULFATE / D5W 1 GM/100 ML BAG IV ONE (11:17)
[2020-12-13] MEDS: ATORVASTATIN 40 MG TAB PO SCH (20:30)
--- NOTE | 2020-12-13 21:17 | Hospitalist Progress Note ---
Date of Service December 13, 2020 Assessment & Plan (1) Babesiosis: Plan: Initial screening peripheral smear for anaplasmosis was thought to possibly represent either malaria or babesiosis. Patient has not had any travel to any malaria-endemic areas, so he is therefore been empirically treated for babesiosis, babesiosis smear shows parasitemia of 1-1.9% initially and now is decreasing down to 0.1-0.9% on 12/12 Babesiosis antibody titer and PCR DNA sent and are pending Lyme titer negative, anaplasmosis smear negative, Anaplasma DNA PCR pending Patient continues to have fever, 39.2 last night, 37.6 today plts 35k, Hb stable, LDH 475, bili 1.5 Not having any bleeding issues continue treatment with atovaquone and azithromycin follow up official ID consult that was being done this morning, report should be available this evening -Continue Tylenol as needed for fevers -Can now discontinue maintenance IV fluids -Continue atovaquone 750 mg p.o. every 12 hours x10-day course-prescription already sent to his outpatient pharmacy as they needed time to order it in -Continue azithromycin 500 mg daily but change to oral for tomorrow-this will also need to be a 10-day course -Continue doxycycline 100 mg every 12 hours empirically in case of coinfection with anaplasmosis and/or Lyme disease anticipate d/c to home tomorrow (2) Thrombocytopenia: Plan: Platelets were 40 upon admission and then down to 30 , secondary to babesiosis Plts improving today up to 35k No evidence of bleeding at this time CT of the abdomen/pelvis on 12/08 does show some mild splenomegaly at that time of 14 cm Follow CBC in the morning If platelets less than 15,000 or has evidence of bleeding with platelets less than 50,000, would transfuse platelets -Discontinued home aspirin (3) Weakness: Plan: Presumptively secondary to babesiosis type infection, improving today with IV fluids and treatment of fever, Babesiosis (4) Acute hyponatremia: Plan: Sodium 130 upon admission and now improved to 135 with IV fluid hydration will now discontinue IV fluids (5) Hypomagnesemia: Plan: Magnesium 1.4 upon admission secondary to dehydration and fevers and poor p.o. intake Mg 1.7 today, replacement ordered (6) Hyperlipidemia: Plan: Continue atorvastatin 80 mg daily (7) Hypertension: Plan: Blood pressures are now better restarted home amlodipine, lisinopril in the AM Continue metoprolol succinate 100 mg every morning with hold parameters (8) Sleep apnea: Plan: CPAP 9 cm H2O for at bedtime and as needed for naps (9) Depression: Plan: No acute issues Continue Lexapro 20 mg daily (10) Obesity: Plan: BMI 44.0 Needs weight loss counseling (11) Diabetes mellitus type 2 in obese: Plan: Blood sugars are controlled continue NovoLog sliding scale Holding home Metformin Check hemoglobin [id number] (12) Mobitz I: Plan: Having intermittent Mobitz 1 second-degree heart block that is asymptomatic Follow on telemetry Consider lowering dose of metoprolol if continues to spike electrolyte replacement Plan: DVT prophylaxis-none at this time due to thrombocytopenia Disposition- plan to d/c to home tomorrow, follow up ID recommendations Admission and Anticipated Discharge Date Admission Date: December 11, 2020 Subjective patient feeling better overall, still with fever of 39.2 last night and low grade temp 37.6 this morning awaiting ID consult this morning reviewed chart reviewed labs, plts 35k, WBC 4k, Hb 10.9, Na 134, Cr 0.53, BUN 10, Mag 1.7, Bili 1.5, LDH 475 Review of Systems Review of Systems: All systems reviewed & are unremarkable except as noted in Subjective Constitutional: + fever, + chills, + body aches, + fatigue and + weakness Respiratory: no cough and no dyspnea Cardiovascular: no chest pain and no edema Gastrointestinal: no abdominal pain, no nausea, no vomiting, no constipation and no diarrhea/loose stools Physical Exam Constitutional: WD/WN, vitals as above no acute distress Neck: trachea midline, no thyromegaly Respiratory: normal respiratory effort, lungs clear to auscultation Cardiovascular: RRR, no murmur, no edema Gastrointestinal (Abdomen): normal bowel sounds, soft, nontender, no hepatosplenomegaly Musculoskeletal: no cyanosis or clubbing, extremities motor strength 5/5 Skin: no rashes, warm and dry Neurologic: patellar DTR's 2+ bilat, sensation intact and PERRL, EOMI, accommodation nl, no face palsy, no dysarthria Psychiatric: A+Ox3, euthymic affect Results & Data Results & Data ([facility]) Vital Signs (Past 12 Hours) Vital Signs Temp Pulse Pulse Resp BP Pulse Ox 12/13/20 19:22 37.2 C 93 H 18 137/61 93 12/13/20 16:12 66 12/13/20 16:00 66 12/13/20 15:24 36.6 C 74 18 127/75 91 12/13/20 11:11 37.9 C H 67 18 110/62 92 12/13/20 10:25 67 Laboratory Results Laboratory Results - last 24 hr 12/10/20 12/12/20 12/13/20 21:45 05:26 06:58 WBC 4.88 4.33 L RBC 4.00 L 3.71 L Hgb 12.1 L 10.9 L Hct 35.6 L 32.8 L MCV 89.0 88.4 MCH 30.3 29.4 MCHC 34.0 33.2 RDW Std Deviation 49.7 H 51.0 H RDW Coeff of Deon 15.3 H 15.7 H Plt Count 40 L 35 L MPV 11.8 H 11.8 H Immature Gran % (Auto) 0.5 Neut % (Auto) 41.0 Lymph % (Auto) 38.6 [place] % (Auto) 18.9 Eos % (Auto) 0.5 Baso % (Auto) 0.5 Neut # (Auto) 1.78 Lymph # (Auto) 1.67 [place] # (Auto) 0.82 H Eos # (Auto) 0.02 Baso # (Auto) 0.02 Immature Gran # (Auto) 0.02 Neutrophils % (Manual) 51.7 Lymphocytes % (Manual) 23.7 Reactive Lymphs % (Man) 11.4 Monocytes % (Manual) 11.4 Eosinophils % (Manual) 0.9 Metamyelocytes % (Man) 0.9 Neutrophils # (Manual) 2.52 Total Absolute Neuts 2.52 Lymphocytes # (Manual) 1.16 L Reactive Lymphs # 0.56 Total Abs Lymphocytes 1.71 Monocytes # (Manual) 0.56 Eosinophils # (Manual) 0.04 Metamyelocytes # (Man) 0.04 H Platelet Estimate Decreased L Polychromasia 1+ Sodium Potassium Chloride Carbon Dioxide Anion Gap BUN Creatinine Est Cr Clr Drug Dosing Est GFR ( Amer) Est GFR (Non-Af Amer) BUN/Creatinine Ratio Glucose POC Glucose Estimat Average Glucose 134 Hemoglobin A1c 6.3 H Calcium Magnesium Total Bilirubin AST ALT Alkaline Phosphatase Lactate Dehydrogenase Total Protein Albumin Globulin Albumin/Globulin Ratio 12/13/20 12/13/20 12/13/20 06:58 06:58 07:39 WBC RBC Hgb Hct MCV MCH MCHC RDW Std Deviation RDW Coeff of Deon Plt Count MPV Immature Gran % (Auto) Neut % (Auto) Lymph % (Auto) [place] % (Auto) Eos % (Auto) Baso % (Auto) Neut # (Auto) Lymph # (Auto) [place] # (Auto) Eos # (Auto) Baso # (Auto) Immature Gran # (Auto) Neutrophils % (Manual) Lymphocytes % (Manual) Reactive Lymphs % (Man) Monocytes % (Manual) Eosinophils % (Manual) Metamyelocytes % (Man) Neutrophils # (Manual) Total Absolute Neuts Lymphocytes # (Manual) Reactive Lymphs # Total Abs Lymphocytes Monocytes # (Manual) Eosinophils # (Manual) Metamyelocytes # (Man) Platelet Estimate Polychromasia Sodium 134 L Potassium 4.0 Chloride 101 Carbon Dioxide 28 Anion Gap 4.0 BUN 10 Creatinine 0.53 L Est Cr Clr Drug Dosing 171.2 Est GFR ( Amer) 128.7 Est GFR (Non-Af Amer) 111.0 BUN/Creatinine Ratio 18.4 Glucose 111 H POC Glucose 141 H Estimat Average Glucose Hemoglobin A1c Calcium 7.9 L Magnesium 1.7 L Total Bilirubin 1.5 H AST 62 H ALT 56 Alkaline Phosphatase 40 L Lactate Dehydrogenase 475 H Total Protein 6.8 Albumin 2.5 L Globulin 4.3 H Albumin/Globulin Ratio 0.6 L 12/13/20 12/13/20 12/13/20 11:28 16:51 20:06 WBC RBC Hgb Hct MCV MCH MCHC RDW Std Deviation RDW Coeff of Deon Plt Count MPV Immature Gran % (Auto) Neut % (Auto) Lymph % (Auto) [place] % (Auto) Eos % (Auto) Baso % (Auto) Neut # (Auto) Lymph # (Auto) [place] # (Auto) Eos # (Auto) Baso # (Auto) Immature Gran # (Auto) Neutrophils % (Manual) Lymphocytes % (Manual) Reactive Lymphs % (Man) Monocytes % (Manual) Eosinophils % (Manual) Metamyelocytes % (Man) Neutrophils # (Manual) Total Absolute Neuts Lymphocytes # (Manual) Reactive Lymphs # Total Abs Lymphocytes Monocytes # (Manual) Eosinophils # (Manual) Metamyelocytes # (Man) Platelet Estimate Polychromasia Sodium Potassium Chloride Carbon Dioxide Anion Gap BUN Creatinine Est Cr Clr Drug Dosing Est GFR ( Amer) Est GFR (Non-Af Amer) BUN/Creatinine Ratio Glucose POC Glucose 146 H 127 H 137 H Estimat Average Glucose Hemoglobin A1c Calcium Magnesium Total Bilirubin AST ALT Alkaline Phosphatase Lactate Dehydrogenase Total Protein Albumin Globulin Albumin/Globulin Ratio Medications Administered Current Inpatient Medications Acetaminophen (Acetaminophen 325 Mg Tab) 650 mg PO Q4H PRN PRN Reason: Pain or Fever Stop: 01/10/21 02:23 Last Admin: 12/12/20 23:19 Dose: 650 mg Documented by: Atorvastatin Calcium (Atorvastatin 40 Mg Tab) 80 mg PO HS [facility] Stop: 01/10/21 20:59 Last Admin: 12/13/20 20:30 Dose: 80 mg Documented by: Atovaquone (Atovaquone 750 Mg/5 Ml Udc) 750 mg PO Q12H [facility] Stop: 01/10/21 08:59 Last Admin: 12/13/20 20:31 Dose: 750 mg Documented by: Azithromycin (Azithromycin 250 Mg Tab) 500 mg PO QAM [facility] Stop: 12/20/20 08:59 Last Admin: 12/13/20 08:58 Dose: 500 mg Documented by: Dextrose (Dextrose 50% 50 Ml Syringe) 25 - 50 ml IV UD PRN; Protocol PRN Reason: Hypoglycemia Protocol Stop: 01/10/21 08:29 Doxycycline Hyclate (Doxycycline Hyclate 100 Mg Cap) 100 mg PO BID [facility] Stop: 12/26/20 17:19 Last Admin: 12/13/20 20:31 Dose: 100 mg Documented by: Escitalopram Oxalate (Escitalopram Oxalate 20 Mg Tab) 20 mg PO QAM [facility] Stop: 01/10/21 08:59 Last Admin: 12/13/20 08:58 Dose: 20 mg Documented by: Glucagon (Glucagon For Inj 1 Mg Vial) 1 mg SQ UD PRN; Protocol PRN Reason: Hypoglycemia Protocol Stop: 01/10/21 08:29 Glucose (Glucose 10 Tabs/Tube) 4 - 8 tabs PO UD PRN; Protocol PRN Reason: Hypoglycemia Protocol Stop: 01/10/21 08:29 Glucose (Glucose 40% Gel 15 Gm Tube) 15 - 30 gm PO UD PRN; Protocol PRN Reason: Hypoglycemia Protocol Stop: 01/10/21 08:29 Insulin Aspart (Insulin Aspart 100 Units/Ml 3 Ml Pen) 0 units SC ACHS [facility] Stop: 01/10/21 11:29 Last Admin: 12/13/20 20:40 Dose: Not Given Documented by: Metoprolol Succinate (Metoprolol Succ 50mg Ext Rel Tab) 100 mg PO QAM [facility] Stop: 01/10/21 08:59 Last Admin: 12/13/20 08:58 Dose: 100 mg Documented by: Miscellaneous (Carbohydrates For Hypoglycemia ) 15 - 30 gm PO UD PRN PRN Reason: Hypoglycemia Protocol Stop: 01/10/21 08:29 Ondansetron HCl (Ondansetron Inj 2 Mg/Ml 2 Ml Vial) 4 mg IV Q6H PRN PRN Reason: Nausea Stop: 01/10/21 02:23 Vitamin D (Cholecalciferol 1,000 Units 25 Mcg Tab) 1,000 units PO QAM [facility] Stop: 01/10/21 08:59 Last Admin: 12/13/20 08:58 Dose: 1,000 units Documented by: PG Care Time/CCT Total # of Minutes Spent Total Time Spent with Patient: Total time spent is greater than 50% in coordination of care (as documented) at patient's floor/unit and/or counseling patient: Coding Level of Care Code 44226 Subseq Hosp Care Lvl 3 Diagnoses Babesiosis B60.00 Thrombocytopenia D69.6 Weakness R53.1 Acute hyponatremia E87.1 Hypomagnesemia E83.42 Hyperlipidemia E78.5 Hypertension I10 Sleep apnea G47.30 Depression F32.9 Obesity E66.9 Diabetes mellitus type 2 in obese E11.69; E66.9 Mobitz I I44.1
[2020-12-13] MEDS: ACETAMINOPHEN 325 MG TAB PO PRN (23:04)
[2020-12-14 08:28] LABS: Hematocrit (blood only) 34.1 % (42-52); Hemoglobin 11.3 g/dL (14.0-18.0); Mean Corpuscular Hemoglobin 29.5 pg (25-34); Mean Corpuscular Hgb Conc 33.1 g/dL (32-36); RDW Coefficient of Variation 15.9 % (11.5-14.5); RDW Standard Deviation 51.7 fL (36.4-46.3); Red Blood Count 3.83 M/uL (4.7-6.1); White Blood Count 3.94 K/uL (4.8-10.8)
[2020-12-14 08:34] LABS: Albumin Level 2.5 gm/dl (3.4-5.0); BUN Creatinine Ratio 20.2 (10-20); Calcium 8.3 mg/dl (8.5-10.1); Est GFR (African American) 125.8 ml/min; Est GFR (Non-African American) 108.5 ml/min; Potassium 4.1 mmol/L (3.5-5.1)
[2020-12-14 08:37] LABS: Albumin Globulin Ratio 0.5 (0.9-2); Bilirubin,Total 1.4 mg/dl (0.2-1); Globulin 4.7 gm/dl (2.5-4.0); Total Protein 7.2 gm/dl (6.4-8.2)
[2020-12-14 08:39] LABS: Mean Platelet Volume 11.4 fL (7.4-10.4); Platelet Count 31 K/uL (130-400)
[2020-12-14] MEDS: AZITHROMYCIN 250 MG TAB PO SCH (09:21)
[2020-12-14] MEDS: METOPROLOL SUCC 50MG EXT REL TAB PO SCH (09:21)
[2020-12-14] MEDS: ESCITALOPRAM OXALATE 20 MG TAB PO SCH (09:21)
[2020-12-14] MEDS: CHOLECALCIFEROL 1,000 UNITS 25 MCG TAB PO SCH (09:21)
[2020-12-14] MEDS: INSULIN ASPART 100 UNITS/ML 3 ML PEN SC SCH (09:22)
[2020-12-14] MEDS: ATOVAQUONE 750 MG/5 ML UDC PO SCH (09:27)
[2020-12-14 09:44] LABS: Basophils # (auto) 0.03 K/uL (0-0.2); Basophils % (auto) 0.8 %; Eosinophils # (auto) 0.04 K/uL (0-0.5); Immature Granulocytes # (auto) 0.02 K/uL (0.00-0.02); Immature Granulocytes % (auto) 0.5 %; Lymphocytes # (auto) 1.77 K/uL (1.2-3.4); Lymphocytes % (auto) 44.9 %; Monocytes # (auto) 0.77 K/uL (0.11-0.59); Monocytes % (auto) 19.5 %; Neutrophils # (auto) 1.31 K/uL (1.4-6.5); Neutrophils % (auto) 33.3 %; Polychromasia 1+
--- NOTE | 2020-12-14 09:51 | Discharge Summary ---
Date of Service December 14, 2020 Admission HPI Per Admitting Provider The patient is a 65-year-old male with a past medical history including hypertension, hyperlipidemia, depression, diabetes mellitus and obesity. He presents to the emergency department with symptoms as noted above. [place], but denies any knowledge of tick bites or any other skin disturbances. He denies any recent travels or sick exposures. He did have testing performed in emergency department this evening with the following significant results: Lyme IgM and IgG negative. COVID-19 negative. Anaplasmosis smear negative, but with incidental report of red blood cell inclusion body suggestive of either malaria or babesiosis by pathologist. The patient was started by the ED on Atovaquone orally, doxycycline IV and azithromycin IV. Principal Diagnosis Babesiosis Discharge Exam Constitutional WD/WN, vitals as above no acute distress Neck trachea midline, no thyromegaly Respiratory normal respiratory effort, lungs clear to auscultation Cardiovascular RRR, no murmur, no edema Gastrointestinal (Abdomen) normal bowel sounds, soft, nontender, no hepatosplenomegaly Musculoskeletal no cyanosis or clubbing, extremities motor strength 5/5 Skin no rashes, warm and dry Neurologic patellar DTR's 2+ bilat, sensation intact and PERRL, EOMI, accommodation nl, no face palsy, no dysarthria Psychiatric A+Ox3, euthymic affect Discharge Data Allergies Allergy/AdvReac Type Severity Reaction Status Date / Time Sulfa (Sulfonamide Allergy Mild RASH Verified 11/10/20 09:27 Antibiotics) Consultations 12/10/20 23:50 ED Decision to Admit Stat 12/11/20 16:57 Consult Infectious Diseases Routine Hospital Course (1) Babesiosis: Initial screening peripheral smear for anaplasmosis was thought to possibly represent either malaria or babesiosis. Patient has not had any travel to any malaria-endemic areas, so he is therefore been empirically treated for babesiosis, babesiosis smear shows parasitemia of 1-1.9% initially and then decreased down to 0.1-0.9% on 12/12 Babesiosis antibody titer and PCR DNA sent and are pending at time of discharge, but ID consult agrees with diagnosis of babesiosis Lyme titer negative, anaplasmosis smear negative, Anaplasma DNA PCR negative Patient continues to have fever but only once a day and less high plts 31k, Hb 11.8, no evidence of hemolysis Not having any bleeding issues continue treatment with atovaquone and azithromycin for 10 days total -Continue Tylenol as needed for fevers will check CBC on Sunday 12/17 and will follow up with PCP next week stay well rested, well nourished and well hydrated (2) Thrombocytopenia: Platelets were 40 upon admission and then down to 30 , secondary to babesiosis Plts are 31k today No evidence of bleeding at this time CT of the abdomen/pelvis on 12/08 does show some mild splenomegaly at that time of 14 cm continue to hold aspirin, check CBC on Sunday 12/17 (3) Weakness: Presumptively secondary to babesiosis type infection, improving with treatment (4) Acute hyponatremia: Sodium 130 upon admission and now improved to 135 with IV fluid hydration will now discontinue IV fluids due to poor solute intake (5) Hypomagnesemia: Magnesium 1.4 upon admission secondary to dehydration and fevers and poor p.o. intake (6) Hyperlipidemia: Continue atorvastatin 80 mg daily (7) Hypertension: Blood pressures are starting to become elevated after being low normal on just metoprolol resume lisinopril on discharge but hold amlodipine for time being Continue metoprolol succinate 100 mg every morning (8) Sleep apnea: CPAP 9 cm H2O for at bedtime and as needed for naps (9) Depression: No acute issues Continue Lexapro 20 mg daily (10) Obesity: BMI 44.0 Needs weight loss counseling (11) Diabetes mellitus type 2 in obese: Blood sugars are controlled continue NovoLog sliding scale Holding home Metformin, resume on discharge Check hemoglobin [id number] (12) Mobitz I: Having intermittent Mobitz 1 second-degree heart block that is asymptomatic continue metoprolol DVT prophylaxis-none at this time due to thrombocytopenia Disposition- plan to d/c to home today Total Time Total Time Spent Total Time Spent (In Minutes): 35 Discharge Plan Discharge Items Patient Disposition: Home - Self-Care Reason For Visit: BABESIOSIS, THROMBOCYTOPENIA Discharge Diagnosis: Babesiosis Thrombocytopenia Condition on Discharge: Good Goals: complete full course of treatment lab work on Sunday Activity: Resume your previous activity Driving/Machine Use: No limitations Weightbearing: Full weightbearing Non-emergency contact: Primary Care Provider Call non-emergency contact if: you have any medication questions and your symptoms worsen Follow-up/Referrals: Kena Contreras MD [Primary Care Provider] - 12/21/20 8:30 am () Diet: Carb Consistent or DM2 and Heart Healthy Ambulatory Orders: Complete Blood Count with Diff (Routine) Timeframe: [id number] Location: Determined by Patient Ordered By: Damion Bolotn Attending Provider Instructions: Medications: - Atovaquone: complete full course as prescribed, start taking tonight as you got a dose this morning - Azithromycin: take for 7 more days, 500mg daily - Amlodipine: HOLD this medication until told to resume by Dr. Contreras, your blood pressure was initially low for a few days, still not very high so it is safe to hold short term - Aspirin: HOLD until told to resume by Dr. Contreras, this is because your platelets are still low from the infection Babesiosis, diagnosed on peripheral smear, associated with fever/chills, low platelets this is a tick born illness, you were NEGATIVE for Lyme disease and Anaplasmosis, thus the doxycycline was stopped per infectious disease, the fevers can last up to a week but should gradually subside your platelets are still low, in the 30's your hemoglobin (red blood cells) has been stable, today it is 11.8 please get rest, stay well nourished and well rested at home complete course of atovaquone and azithromycin check labs on Sunday and follow up with Dr. Contreras next week Pending Studies at Discharge: Yes Studies:: Babesiosis antibodies, antigen Stand-Alone Forms: [facility] [employer], Smoking Cessation Medications and DC Order Prescriptions: New atovaquone [Mepron] 750 mg/5 mL Suspension 750 mg PO Q12H 8 Days Qty: 80 RF: 0 azithromycin 250 mg Tablet 500 mg PO QAM 7 Days Qty: 14 RF: 0 Continued (DME) Wheelchair (Manual) Device See Rx Instructions .MEDSUPPLY Qty: 1 RF: 0 multivitamin Tablet 1 tab PO QPM RF: 0 metformin 500 mg Tablet 500 mg PO QAM RF: 0 atorvastatin 80 mg Tablet 80 mg PO HS RF: 0 metoprolol succinate 100 mg Tablet Extended Release 24 Hr 100 mg PO QAM RF: 0 ascorbic acid (vitamin C) [Vitamin C] 500 mg Tablet 500 mg PO QAM RF: 0 lisinopril 40 mg Tablet 40 mg PO QPM RF: 0 cholecalciferol (vitamin D3) [Vitamin D3] 25 mcg (1,000 unit) Capsule 25 mcg PO QAM RF: 0 escitalopram oxalate [Lexapro] 20 mg Tablet 20 mg PO QAM RF: 0 coQ10 (ubiquinol) 200 mg Capsule 200 mg PO QPM RF: 0 Vascepa 4 cap PO BID RF: 0 Discontinued aspirin 81 mg Tablet,Delayed Release (Dr/Ec) 81 mg PO QPM RF: 0 amlodipine 10 mg Tablet 10 mg PO QAM RF: 0 Discharge Orders: Discharge Order (Routine); Ordered 12/14/20 Ordered By: Damion Webster/Other Patient Handouts: A1C, Managing Type 2 Diabetes Admission Data Admit Date/Time: 12/11/20 00:23 Attending Provider: Damion El Admit Provider: Servando Sam Primary Care Provider: Kena Contreras Other Providers: Servando Sam ; Elpidio Curry ; Cordell Herron ; Vinod Peterson I. ; Joe James II ; Zonia Arroyo ; Ned Charles Coding Level of Care Code D/C DAY MANAGEMENT >30 MINS Diagnoses Babesiosis B60.00 Thrombocytopenia D69.6 Weakness R53.1 Acute hyponatremia E87.1 Hypomagnesemia E83.42 Hyperlipidemia E78.5 Hypertension I10 Sleep apnea G47.30 Depression F32.9 Obesity E66.9 Diabetes mellitus type 2 in obese E11.69; E66.9 Mobitz I I44.1
[2020-12-17 03:18] LABS: Babesia microti DNA Detected (Not Detected); Babesia microti IgG <1:64 titer (<1:64)
== END 2020-12-14 11:16 | disposition home or self-care (01) ==
LOC: ED 20:23 → INTOOBSV 12-11 00:23 → SUATTDRO 12-11 00:23 → 2N 12-11 00:23